=== PATIENT | male | born 1950 | race African-American/Black ===

== ENCOUNTER 2016-08-30 08:03 | Inpatient (IN) | payer OTHER ==
[~2016-08-30] VITALS: Ht 165.1 cm; Wt 57.2 kg
--- NOTE | ~2016-08-30 | HC ---
[facility] [place] [address] CONSULTATION Name: RACHELL MONTGOMERY Room #: 215-P [facility] IN M.R.#: [id number] Admission: 08/30/16 Attend Phys: Joel Raymond MD Discharge: Date of : 48 Report #: [id number] THIS REPORT FOR: //name// CC: Joel Hill DATE OF SERVICE: 08/30/2016 DATE OF SERVICE: 08/30/2016. REASON FOR CONSULTATION: Acute respiratory failure. IMPRESSION: 1. Acute respiratory failure. 2. Bilateral infiltrates. 3. Peripheral vascular disease. 4. Question history of asthma. 5. Elevated D-dimer. 6. Elevated troponin. 7. Hypokalemia. 8. Normocytic anemia, MCV of 81.8. 9. Peripheral edema. PLAN: We will do a vasculitic workup, treat as pneumonia, also treat as a volume overload, question pulmonary hypertension. Echo is being checked. We will place on antibiotics to urine Legionella and Strep. DVT prophylaxis. HISTORY OF PRESENT ILLNESS: A 65-year-old male who relates he had vascular surgery about 3 months ago with bypass, comes in. For the last 3 days, he has been having progressive shortness of breath. No definite chest pain or palpitation. No fever, chills or night sweats. Mainly stays at home. No definite exposure. No history of DVT or PE. 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 PAST MEDICAL HISTORY: 1. Hypertension. 2. GERD. 3. History of polio. 4. Vascular disease. 5. Question asthma. FAMILY HISTORY: Negative for PE or lung disease. SOCIAL HISTORY: He has not drank or smoked for 20 years. He is retired. ALLERGIES: None known. [facility] [address] [place] [address] CONSULTATION Name: RACHELL MONTGOMERY Room #: 215-P [facility] IN .R.#: [id number] Admission: 08/30/16 Attend Phys: Joel Raymond MD Discharge: Date of : 48 Report #: [id number] SURGERIES: As above. Include bones removed from rib and placed in left leg, right knee replacement, fem bypass, prostatectomy and per chart, history of bowel reconstruction surgery. HOME MEDICATIONS: Include omeprazole, Naprosyn, lisinopril, atenolol, albuterol, alprazolam, Combivent, clonidine. REVIEW OF SYSTEMS: CONSTITUTIONAL: No fever, chills. EYES: No change in vision. RESPIRATORY: Positive shortness breath. HEMATOLOGIC: No hemoptysis, hematemesis or hematuria. ABDOMEN: No abdominal pain. EXTREMITIES: Positive leg swelling. PHYSICAL EXAMINATION: VITAL SIGNS: Temperature 98, pulse 74, respiratory rate is 18, and BP 184/76. EXTREMITIES: Right leg edema. NEUROLOGIC: Alert and oriented. LABORATORY AND DIAGNOSTIC DATA: Chest x-ray showed perihilar and basilar interstitial infiltrates, significantly increased from 2015 chest. D-dimer 2.83, BUN 14, creatinine 0.6. White count 5.8, hemoglobin 10.6, platelets 183. CT PE protocol showing no emboli atelectasis and infiltrates bilaterally and small effusions. Venous Doppler is negative. We will follow closely with you. By: 1634 2257 Ward Cates MD /nt
--- NOTE | ~2016-08-30 | HC ---
[facility] [place] [address] CONSULTATION Name: RACHELL MONTGOMERY Room #: 215-P [facility] IN .R.#: [id number] Admission: 08/30/16 Attend Phys: Joel Raymond MD Discharge: Date of : 48 Report #: [id number] THIS REPORT FOR: //name// CC: Joel Hill REASON FOR CONSULTATION: Shortness of breath. HISTORY OF PRESENT ILLNESS: The patient is a 65-year-old gentleman with history of hypertension and peripheral vascular disease. He presents with a several day history of increasing shortness of breath and lower extremity edema. He denies a prior cardiac history. He was seen in the emergency department where he was severely hypoxemic. He was placed on intravenous furosemide as well as steroids and inhalers and had substantial improvement in his symptoms. He does report fairly recent peripheral vascular surgery at [facility] at which time he underwent a stress study. He was told that this stress study was okay. He did not see a sterilisation technician at that time. He denies palpitations, near syncope or syncope. Blood pressure readings have been "all over the map", although frequently high with occasional low readings. HOME MEDICATIONS: Include omeprazole 20 mg daily, lisinopril 40 mg daily, atenolol 100 mg daily, albuterol, Levitra, alprazolam, Atrovent, Lasix 20 mg daily, clonidine 0.2 mg twice daily, allopurinol 300 mg daily and Neurontin. ALLERGIES: No known drug allergies. PAST MEDICAL HISTORY: Past history and medical records are notable for asthma, gout, peripheral vascular disease with peripheral revascularization, total knee replacement, prostatectomy. SOCIAL HISTORY: He is a nonsmoker, nondrinker. 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 FAMILY HISTORY: Unremarkable for premature coronary artery disease. REVIEW OF SYSTEMS: All systems negative except as that noted above. PHYSICAL EXAMINATION: GENERAL: A pleasant gentleman in no distress. VITAL SIGNS: Blood pressure is 160/70, heart rate of 67 and regular. He is afebrile, 5 feet 5 inches tall, 148 pounds. HEENT: There are neither xanthelasma, subcutaneous xanthomata, oral mucosal or digital cyanosis or kyphoscoliosis present. CHEST: Reveals a few bibasilar crackles. CARDIAC: Regular rate and rhythm with normal S1, S2. An S3 gallop is present. Jugular venous pressure is elevated. ABDOMEN: Soft and nontender. EXTREMITIES: Without cyanosis or clubbing, peripheral edema is noted. [address] [address] CONSULTATION Name: RACHELL MONTGOMERY Anton Room #: 215-P ADM IN M.R.#: [id number] Admission: 08/30/16 Attend Phys: Joel Raymond MD Discharge: Date of : 48 Report #: [id number] pulses are 2+. NEUROLOGIC: He is alert with a nonfocal exam. LABORATORY DATA: Sodium is 141, potassium 3.5, creatinine 0.7. ProBNP of 1123. Troponin is negative. White count 5.0, hemoglobin 10, hematocrit 32, platelet count 197. RADIOLOGICAL DATA: Chest x-ray demonstrates pulmonary edema. CAT scan demonstrates no evidence of pulmonary emboli, coronary calcifications are noted. EKG, sinus rhythm, normal tracing. IMPRESSION: 1. Congestive heart failure, probable hypertensive cardiomyopathy; suspect acute on chronic systolic heart failure. 2. Peripheral vascular disease. 3. Chronic obstructive pulmonary disease. 4. Hypertension. 5. History of asthma. RECOMMENDATIONS: 1. Echocardiogram with Doppler. 2. Addition of CATRACHITA inhibitor, carvedilol. 3. Continued intravenous diuretic therapy. 4. Obtain records regarding prior stress testing, which was done fairly recently and any cardiovascular evaluation from [facility], this has been requested. Further thoughts will be forthcoming based on this evaluation. Thank you for asking me to participate in the patient's care. <ELECTRONICALLY SIGNED> By: Mckay Hannon MD, FACC 09/01/16 1052 1228 0322 Mckay Hannon MD, FACC /nt
--- NOTE | ~2016-08-30 | 2DMMODE ---
[facility] [address] [place] [address] 2 D/M-MODE ECHOCARDIOGRAM Name: RACHELL MONTGOMERY Room #: 215-P [facility] IN ..#: [id number] Admission: 08/30/16 Attend Phys: Joel Raymond, Discharge: Date of : 48 Date of Service: 08/30/16 1633 Report #: [id number] THIS REPORT FOR: //name// APPROVED REPORT Study performed: 08/30/2016 15:27:46 EXAM: Comprehensive 2D, Doppler, and color-flow Echocardiogram Patient Location: Bedside Room #: [facility] Status: routine Other Information Study Quality: Good Indications Dyspnea Hypertension/HDD 2D Dimensions LVEF(%): 46.55 (>50%) IVSd: 9.70 (7-11mm) LVOT Diam: 20.04 (18-24mm) LVDd: 53.27 mm PWd: 9.64 (7-11mm) Ascending Ao: 28.17 (22-36mm) LVDs: 40.76 (25-40mm) Aortic Root: 26.31 mm IVC: 21.00 mm Vargas's LVEF: 46.55 % Volumes Left Atrial Volume (Systole) Single Plane 4CH: 69.47 mL Single Plane 2CH: 59.01 mL LA ESV Index: 40.00 mL/m2 Aortic Valve AoV Peak Aryan.: 1.94 m/s AO Peak Gr.: 15.08 mmHg LVOT Max P.96 mmHg LVOT Max V: 0.99 m/s CONNER Vmax: 1.61 cm2 Mitral Valve E/A Ratio: 1.0 MV Decel. Time: 163.04 ms MV E Max Aryan.: 1.27 m/s MV A Aryan.: 1.24 m/s MV PHT: 47.28 ms [facility] [place] [address] 2 D/M-MODE ECHOCARDIOGRAM Name: RACHELL MONTGOMERY Room #: 215-P [facility] IN M.R.#: [id number] Admission: 08/30/16 Attend Phys: Joel Raymond, Discharge: Date of : 48 Date of Service: 08/30/16 1633 Report #: [id number] IVRT: 92.27 ms Pulmonary Valve PV Peak Aryan.: 0.91 m/s PV Peak Gr.: 3.31 mmHg UT End Vmax: 1.24 m/s Pulmonary Vein P Vein S: 0.48 m/s P Vein A: 0.30 m/s P Vein D: 0.45 m/s P Vein A Dur.: 92.3 msec P Vein S/D Ratio: 1.07 Tricuspid Valve TR Peak Aryan.: 2.89 m/s RAP Estimate: 10.00 mmHg TR Peak Gr.: 33.30 mmHg PA Pressure: 43.00 mmHg Left Ventricle The left ventricle is normal size. There is normal LV segmental wall motion. There is normal left ventricular wall thickness. The left ventricular systolic function is normal. LVEF is 50-55%. The left ventricular diastolic function is normal. Right Ventricle The right ventricle is normal size. The right ventricular systolic function is normal. Atria Left atrium is dilated. Right atrium is dilated. Aortic Valve Aortic valve is calcified. Trace aortic regurgitation. There is no aortic valvular stenosis. Mitral Valve The mitral valve is normal in structure. Mild to moderate mitral regurgitation. No evidence of mitral valve stenosis. Tricuspid Valve The tricuspid valve is normal in structure. There is mild tricuspid regurgitation. The right atrial pressure is estimated at 10 mmHg. There is moderate pulmonary hypertension. Pulmonic Valve The pulmonary valve is normal in structure. Mild pulmonic regurgitation. [address] [place] [address] 2 D/M-MODE ECHOCARDIOGRAM Name: VALENTINARACHELL Room #: 215-P [facility] IN .R.#: [id number] Admission: 08/30/16 Attend Phys: Joel Raymond, Discharge: Date of : 48 Date of Service: 08/30/16 1633 Report #: [id number] Great Vessels The aortic root is normal in size. IVC is dilated and collapses >50% with inspiration. Pericardium There is no pericardial effusion. <Conclusion> The left ventricular systolic function is normal. There is normal LV segmental wall motion. LVEF is 50-55%. Aortic valve is calcified. There is no aortic valvular stenosis, trace insufficiency The mitral valve is normal in structure. Mild to moderate mitral regurgitation. There is no pericardial effusion. <ELECTRONICALLY SIGNED> By: Mckay Hannon MD, FACC 08/30/16 1633 1633 1633 Mckay Hannon MD, FACC /INF
--- NOTE | ~2016-08-30 | EKG ---
[facility] [address] [employer] [address] ELECTROCARDIOGRAM REPORT Name: RACHELL MONTGOMERY Room #: 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 : 1950 Requested By: Sulema Callaway Order Number: [id number] MD: Mckay Hannon Measurements Intervals [place] Rate: 66 P: 65 [place]: 192 QRS: 25 QRSD: 111 T: 7 QT: 437 QTc: 458 Interpretive Statements Sinus rhythm No significant abnormality Borderline T abnormalities, inferior leads Compared to ECG 06/14/2014 21:10:26 no significant change was found Electronically Signed On 08-30-2016 8:20:49 CDT by Mckay Hannon [email or web address] <ELECTRONICALLY SIGNED> By: Mckay Hannon MD, [facility] 08/30/16819 2 2 Mckay Hannon MD, FACC /EPI
[~2016-08-30 08:03] MED LIST: ADULT LOW DOSE81 MG PO; ALBUTEROL2.5 MG/0.5 INH; ALLOPURINOL 30300 M1 PO; AMLODIPINE BESY10 MG PO; ATENOLOL 100MG100 M2; BACTRIM PO; CATAPRES0.2 MG PO; CLONIDINE HCL0.2 M2 PO; COMBIVENT INH; DESYREL100 MG PO; FLONASE 0.05%50 MCG NASAL; FUROSEMIDE 40 M40 M1 PO; GABAPENTIN100 MG PO; INDAPAMIDE2.5 MG PO; K-DUR10 ME1 PO; LASIX 20 MG TAB20 MG PO; LEVITRA20 MG PO; LIDODERM 5%1 PATC1; LISINOPRIL30 MG PO; NAPROSYN500 MG PO; NORCO 5-325 TA1 EACH PO; OMEPRAZOLE20 M2 PO; OXYCODONE HCL15 MG PO; POTASSIUM20 PO; PROMETHAZI6.25 MG/2 GT; ROBAXIN 750 MG750 M1 PO; TAMSULOSIN HCL0.4 MG PO; TOPROL XL25 MG PO; TRAZODONE HCL100 MG PO; XANAX 0.5 MG0.5 MG PO; XOPENEX HF1 UDINHALE IH; XOPENEX HF1 UDINHALE INH
[2016-08-30 08:04] VITALS: BP 184/76
[2016-08-30 08:34] LABS: HEMATOCRIT 32.7 % (42.0-52.0); HEMOGLOBIN 10.6 gm/dL (14.0-18.0); MCH 26.5 pg (26.0-34.0); MCHC 32.4 g/dL (28.0-37.0); MCV 81.8 fL (80.0-100.0); PLATELET COUNT 183 thou/uL (150-400); WBC 5.8 thou/uL (4.0-11.0)
[2016-08-30 08:40] LABS: MANUAL DIFF YES
[2016-08-30 08:45] LABS: CALCIUM 8.2 mg/dL (8.5-10.1); CREATININE 0.6 mg/dL (0.7-1.3); POTASSIUM 3.1 mmol/L (3.5-5.1)
[2016-08-30 08:57] LABS: TROPONIN-I 0.09 ng/mL (<0.04-0.07)
[2016-08-30 09:11] LABS: ABSOLUTE NEUTROPHILS 4.7 thou/uL (1.4-8.2); PLATELET ESTIMATE NORMAL; TOTAL CELL COUNT 100
[2016-08-30 09:12] LABS: ANISOCYTOSIS 2+
[2016-08-30 09:13] LABS: HYPOCHROMASIA 1+
[2016-08-30 09:14] LABS: POIKILOCYTOSIS SLIGHT
[2016-08-30 10:01] VITALS: BP 165/59
[2016-08-30 10:10] VITALS: BP 184/76
[2016-08-30 16:30] VITALS: BP 143/58
[2016-08-30 19:25] VITALS: BP 151/73
[2016-08-30 21:27] LABS: ALBUMIN 3.6 g/dL (3.4-5.0); DIRECT BILIRUBIN 0.1 mg/dL (<0.1-0.3); TOTAL BILIRUBIN 0.5 mg/dL (<0.1-1.0); TOTAL PROTEIN 6.6 g/dL (6.4-8.2)
[2016-08-30 21:31] LABS: INR 1.3; PROTIME 13.1 Seconds (9.3-11.4)
[2016-08-30 23:54] VITALS: BP 152/80
[2016-08-31 00:01] VITALS: BP 152/80
[2016-08-31 03:24] LABS: HEMATOCRIT 32.6 % (42.0-52.0); HEMOGLOBIN 10.6 gm/dL (14.0-18.0); MCH 26.2 pg (26.0-34.0); MCHC 32.5 g/dL (28.0-37.0); MCV 80.7 fL (80.0-100.0); RBC 4.05 mil/uL (4.50-6.00); RDW 20.6 % (10.5-14.5)
[2016-08-31 03:40] LABS: ALBUMIN 3.5 g/dL (3.4-5.0); CALCIUM 7.9 mg/dL (8.5-10.1); CREATININE 0.7 mg/dL (0.7-1.3); POTASSIUM 3.5 mmol/L (3.5-5.1); TOTAL BILIRUBIN 0.5 mg/dL (<0.1-1.0); TOTAL PROTEIN 6.6 g/dL (6.4-8.2); TROPONIN-I 0.05 ng/mL (<0.04-0.07)
[2016-08-31 04:03] VITALS: BP 158/67
[2016-08-31 11:17] VITALS: BP 160/75
[2016-08-31 15:54] VITALS: BP 189/79
[2016-08-31] MEDS ORDERED: ATORVASTATIN CA40 MG PO (18:14)
[2016-08-31] MEDS ORDERED: COREG3.125 MG PO (18:15)
[2016-08-31] MEDS ORDERED: ELIQUIS2.5 MG PO (18:15)
[2016-08-31] MEDS ORDERED: HYDRALAZINE 2525 MG PO (18:18)
[2016-08-31] MEDS ORDERED: FENTANYL PATCH75 MCG TRANSDERM (18:19)
[2016-08-31 19:28] VITALS: BP 161/78
[2016-09-01 03:03] LABS: HEMATOCRIT 31.6 % (42.0-52.0); HEMOGLOBIN 10.2 gm/dL (14.0-18.0); MCH 26.2 pg (26.0-34.0); MCHC 32.3 g/dL (28.0-37.0); RBC 3.9 mil/uL (4.50-6.00); RDW 20.9 % (10.5-14.5)
[2016-09-01 03:17] LABS: CREATININE 0.5 mg/dL (0.7-1.3); POTASSIUM 3.6 mmol/L (3.5-5.1)
[2016-09-01 04:12] VITALS: BP 165/68
[2016-09-01 09:10] VITALS: BP 172/70
[2016-09-01 12:00] VITALS: BP 172/73
[2016-09-01 16:50] VITALS: BP 152/80
[2016-09-01 20:32] VITALS: BP 159/75
[2016-09-02 03:50] VITALS: BP 166/84
[2016-09-02 10:05] VITALS: BP 136/65
[2016-09-02 12:00] VITALS: BP 151/64
[2016-09-02] MEDS ORDERED: ALBUTEROL2.5 MG/0.5 INH (12:00)
[2016-09-02] MEDS ORDERED: CARVEDILOL25 MG PO (12:01)
[2016-09-02] MEDS ORDERED: ASPIR 8181 MG PO (12:02)
[2016-09-02] MEDS ORDERED: ALDACTONE25 MG PO (12:02)
[2016-09-02] MEDS ORDERED: LASIX 40 MG TAB40 M1 PO (12:04)
[2016-09-02] MEDS ORDERED: SPIRIVA INH (12:13)
[2016-09-02] MEDS ORDERED: PREDNISONE 10 M10 MG PO (12:18)
[2016-09-02] MEDS ORDERED: CEFPODOXIME PR200 M1 PO (12:36)
[2016-09-02 12:49] VITALS: BP 151/64
[2016-09-02 15:41] VITALS: BP 151/64
[2016-09-02 17:10] LABS: c-ANCA <1:20 titer (Neg:<1:20); p-ANCA <1:20 titer (Neg:<1:20)
[2016-09-02 18:06] LABS: BLASTOMYCES-IMMUNODIFF Negative (Neg:<1:1); HISTOPLASMA-IMMUNODIFF Negative (Neg:<1:1)
[2016-09-03 16:09] LABS: ASPERGILLUS FLAVUS-ID Negative (Neg:<1:1); ASPERGILLUS FUMIGATUS-ID Negative (Neg:<1:1); ASPERGILLUS NIGER-ID Negative (Neg:<1:1)
== END 2016-09-02 15:42 | disposition home or self-care (01) | DRG 291 ==
LOC: ER 08:03 → EROBS 09:24 → 2N 09:24
PROVIDERS: Emergency Medicine; Family Medicine; Internal Medicine; Internal Medicine Pulmonary Disease
DX: I11.0 Hypertensive heart disease with heart failure (principal); J96.01 Acute respiratory failure with hypoxia; J18.9 Pneumonia, unspecified organism; J44.0 Chronic obstructive pulmonary disease with (acute) lower respiratory infection; I73.9 Peripheral vascular disease, unspecified; K21.9 Gastro-esophageal reflux disease without esophagitis; Z96.651 Presence of right artificial knee joint; M10.9 Gout, unspecified; J84.10 Pulmonary fibrosis, unspecified; E87.6 Hypokalemia; I50.43 Acute on chronic combined systolic (congestive) and diastolic (congestive) heart failure; D64.9 Anemia, unspecified; I99.9 Unspecified disorder of circulatory system; I27.2 Other secondary pulmonary hypertension; M19.90 Unspecified osteoarthritis, unspecified site; Z98.62 Peripheral vascular angioplasty status; Z79.899 Other long term (current) drug therapy; Z87.891 Personal history of nicotine dependence; Z86.12 Personal history of poliomyelitis; Z90.49 Acquired absence of other specified parts of digestive tract; Z90.79 Acquired absence of other genital organ(s)
CPT/HCPCS: 10194

== ENCOUNTER 2016-10-12 13:23 | Emergency (ER) | payer OTHER ==
[~2016-10-12] VITALS: Ht 165.1 cm; Wt 68.0 kg
[~2016-10-12 13:23] MED LIST changes: +ALDACTONE25 MG PO; +ASPIR 8181 MG PO; +ATORVASTATIN CA40 MG PO; +CARVEDILOL25 MG PO; +CEFPODOXIME PR200 M1 PO; +COREG3.125 MG PO; +ELIQUIS2.5 MG PO; +FENTANYL PATCH75 MCG TRANSDERM; +HYDRALAZINE 2525 MG PO; +LASIX 40 MG TAB40 M1 PO; +PREDNISONE 10 M10 MG PO; +SPIRIVA INH
[2016-10-12 14:36] LABS: HEMATOCRIT 36.7 % (42.0-52.0); HEMOGLOBIN 12.2 gm/dL (14.0-18.0); MCH 27.4 pg (26.0-34.0); MCHC 33.1 g/dL (28.0-37.0); MCV 82.6 fL (80.0-100.0); PLATELET COUNT 152 thou/uL (150-400); RBC 4.45 mil/uL (4.50-6.00); RDW 17.1 % (10.5-14.5); WBC 8.2 thou/uL (4.0-11.0)
[2016-10-12 14:37] LABS: MANUAL DIFF YES
[2016-10-12 14:52] LABS: CALCIUM 8.6 mg/dL (8.5-10.1); CREATININE 0.6 mg/dL (0.7-1.3)
[2016-10-12 14:55] LABS: POTASSIUM 2.9 mmol/L (3.5-5.1)
[2016-10-12 14:56] LABS: ABSOLUTE NEUTROPHILS 6.3 thou/uL (1.4-8.2); ANISOCYTOSIS 1+; TOTAL CELL COUNT 100
[2016-10-12] MEDS ORDERED: PENICILLIN VK500 M1 PO (15:53)
[2016-10-12 16:58] VITALS: BP 169/68
== END 2016-10-12 17:00 | disposition home or self-care (01) ==
LOC: ER 13:23
PROVIDERS: Physician Assistant
DX: K04.7 Periapical abscess without sinus (principal); E87.6 Hypokalemia; I10 Essential (primary) hypertension; I73.9 Peripheral vascular disease, unspecified; M19.90 Unspecified osteoarthritis, unspecified site; J45.909 Unspecified asthma, uncomplicated; K21.9 Gastro-esophageal reflux disease without esophagitis; M10.9 Gout, unspecified; Z90.49 Acquired absence of other specified parts of digestive tract; Z96.651 Presence of right artificial knee joint

== ENCOUNTER 2016-12-17 10:44 | Emergency (ER) | payer OTHER ==
[~2016-12-17] VITALS: Ht 289.6 cm; Wt 61.2 kg
[~2016-12-17 10:44] MED LIST changes: +PENICILLIN VK500 M1 PO
[2016-12-17 11:37] LABS: HEMATOCRIT 37.8 % (42.0-52.0); HEMOGLOBIN 12.5 gm/dL (14.0-18.0); MCH 26.2 pg (26.0-34.0); MCHC 33.2 g/dL (28.0-37.0); MCV 78.9 fL (80.0-100.0); RBC 4.79 mil/uL (4.50-6.00); RDW 16.9 % (10.5-14.5); WBC 5.2 thou/uL (4.0-11.0)
[2016-12-17 11:43] LABS: URINE BILIRUBIN NEGATIVE (Negative); URINE BLOOD 1+ (Negative); URINE COLOR YELLOW; URINE GLUCOSE-RANDOM* NEGATIVE (Negative); URINE KETONES NEGATIVE (Negative); URINE LEUKOCYTES-REFLEX NEGATIVE (Negative); URINE PROTEIN (DIPSTICK) NEGATIVE (Negative); URINE SPECIFIC GRAVITY <= 1.005 (1.003-1.035); URINE UROBILINOGEN 0.2 E.U./dl (0.2-1.0)
[2016-12-17 11:43] LABS: CALCIUM 8.4 mg/dL (8.5-10.1); CREATININE 0.6 mg/dL (0.7-1.3); POTASSIUM 3.2 mmol/L (3.5-5.1)
[2016-12-17 12:00] LABS: CASTS None Seen /LPF (None Seen); CRYSTALS None Seen /LPF (None Seen); SQUAMOUS None Seen /LPF (0-3); URINE RBC 0-2 Rare /HPF (0-2); URINE WBC-REFLEX None Seen /HPF (0-5)
[2016-12-17 15:11] VITALS: BP 171/78
== END 2016-12-17 15:00 | disposition home or self-care (01) ==
LOC: ER 10:44
PROVIDERS: Emergency Medicine
DX: R10.9 Unspecified abdominal pain (principal); I10 Essential (primary) hypertension; M19.90 Unspecified osteoarthritis, unspecified site; J45.909 Unspecified asthma, uncomplicated; K21.9 Gastro-esophageal reflux disease without esophagitis; M10.9 Gout, unspecified; Z90.49 Acquired absence of other specified parts of digestive tract; Z96.651 Presence of right artificial knee joint

== ENCOUNTER 2016-12-18 10:17 | Inpatient (IN) | payer OTHER ==
[~2016-12-18] VITALS: Ht 167.6 cm; Wt 65.4 kg
--- NOTE | ~2016-12-18 | HC ---
[facility] [place] [address] CONSULTATION Name: RACHELL MONTGOMERY Room #: 431-P [facility] IN .R.#: [id number] Admission: 12/18/16 Attend Phys: Keshav Salcido MD Discharge: Date of : 48 Report #: [id number] THIS REPORT FOR: //name// CC: Gamaliel Salcido DATE OF SERVICE: 12/18/2016 HISTORY OF PRESENT ILLNESS: The patient is a 66-year-old -Algerian male with a prior history of polio, premorbidly wheelchair bound, was apparently independent with transfers. He has been utilizing a powered wheelchair and apparently his powered wheelchair broke and now he has been utilizing a manual wheelchair. Upon discussion with case management, it sounds like the patient and have been unable to get a script for a new powered wheelchair and he thus had to utilize the manual wheelchair. The patient has had problems with back pain and weakness and difficulty with mobility utilizing the manual wheelchair. He was admitted to the hospital at this point with a hypertensive emergency, as well as some flank pain with abnormal CT of the abdomen and severe peripheral vascular disease with peripheral arterial disease. CT scan of the abdomen revealed occlusion of the aorta inferior to the level of the renal artery use. A previous abdominal aorta to bilateral common femoral bypass graft was placed; however, it was completely occluded. There also is a previous right axillary to right femoral graft present, which appears patent. We are seeing him in rehabilitation medicine consultation. PAST MEDICAL HISTORY: Again includes the polio. He ambulated with a walker and a left leg brace for many years and indicates over the last 10 years, he has been wheelchair bound. He apparently could transfer himself, although notes become more and more difficult prior to admission. He has had a prior right total knee replacements. History of peripheral vascular disease with a bypass surgery as noted above. He also has a prior history of congestive heart failure, GERD, gout, asthma, degenerative arthritis prostatectomy and bowel reconstruction surgery 02/14/2011. MEDICATIONS: Please see the full medication listing. HABITS: Tobacco abuse, quit greater than a year ago. No history of alcohol abuse. SOCIAL HISTORY: As noted above. House one level could get around in a wheelchair; as noted works during the day. REVIEW OF SYSTEMS: Note complaints of some of the low back pain, which radiates around the front and the back and was noted to red cliff around. No complaints of bowel or bladder changes. [facility] [address] [place] [address] CONSULTATION Name: RACHELL MONTGOMERY Room #: 431-P [facility] IN .R.#: [id number] Admission: 12/18/16 Attend Phys: Keshav Salcido MD Discharge: Date of : 49 Report #: [id number] PHYSICAL EXAMINATION: GENERAL: A 66-year-old slender -Algerian male in no obvious distress. NEUROLOGIC: He is alert, follows basic commands without difficulty. VITAL SIGNS: Temperature 98.6, pulse 70, respirations 17, blood pressure 192/75. HEENT: Facies are symmetric. EXTREMITIES: He has functional range of motion of both upper extremities without obvious focal weakness. DTRs are 1 in his lower extremities. Right lower extremity strength is probably a grade 3+ to 4-/5. DTRs are trace to 1. Left lower extremity revealed evidence of the old polio with a significantly atrophied for shortened lower extremity. He does have some movement of that left leg, I would grade it probably at 2+. Tone was decreased. ASSESSMENT: A 66-year-old -Algerian male with the following problem list: 1. History of polio with left lower extremity atrophy and for shortening. 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 2. Functional mobility and ADL deficits with a decline from premorbid. 3. Lower back, bilateral flank pain. 4. History of severe peripheral vascular disease with peripheral arterial disease and significantly abnormal CT of the abdomen as noted above. 5. Hypertensive emergency. 6. Prior history of congestive heart failure. PLAN: Therapies are to evaluate. He will need to be considered regarding rehab therapy options as he further medically stabilizes. Upon discussion with the director of social services there are issues regarding obtaining a powered wheelchair in this patient. This is typically a significantly involved process working with therapy and with the wheelchair vendor in order to get insurance approval. I indicated to the case aide that I certainly could assist with the patient post-discharge or have him follow up in the Senior clinic if warranted to try to assist further with this. Lot of initiative needs to come from the wheelchair vendor as far as the appropriate forms, back and can be started with therapy and then I can further assist in completing. At this point, we will be glad to follow along regarding this patient's rehab therapy needs. By: 1602 0613 Rogelio Almazan MD /[facility]
[2016-12-18 10:18] VITALS: BP 223/82
[2016-12-18 10:44] LABS: HEMATOCRIT 35.7 % (42.0-52.0); HEMOGLOBIN 11.4 gm/dL (14.0-18.0); MCH 25.2 pg (26.0-34.0); MCHC 31.9 g/dL (28.0-37.0); MCV 79.1 fL (80.0-100.0); PLATELET COUNT 179 thou/uL (150-400); RBC 4.51 mil/uL (4.50-6.00); RDW 16.9 % (10.5-14.5); WBC 5.2 thou/uL (4.0-11.0)
[2016-12-18 10:46] LABS: MANUAL DIFF YES
[2016-12-18 10:54] LABS: CALCIUM 8.5 mg/dL (8.5-10.1); CREATININE 0.5 mg/dL (0.7-1.3)
[2016-12-18 11:00] LABS: ALBUMIN 3.3 g/dL (3.4-5.0); DIRECT BILIRUBIN 0.2 mg/dL (<0.1-0.3); TOTAL BILIRUBIN 0.8 mg/dL (<0.1-1.0); TOTAL PROTEIN 6.6 g/dL (6.4-8.2)
[2016-12-18 11:02] LABS: POTASSIUM 2.9 mmol/L (3.5-5.1)
[2016-12-18 11:03] LABS: TOTAL CELL COUNT 100
[2016-12-18 11:04] LABS: ANISOCYTOSIS 1+; MICROCYTES 1+; OVALOCYTES FEW
[2016-12-18 12:35] VITALS: BP 133/57
[2016-12-18 14:28] VITALS: BP 192/75
[2016-12-18 16:20] LABS: MAGNESIUM 1.7 mg/dL (1.8-2.4)
[2016-12-18 16:22] LABS: POTASSIUM 3.9 mmol/L (3.5-5.1)
[2016-12-18 20:00] VITALS: BP 184/68
[2016-12-19 00:08] VITALS: BP 139/61
[2016-12-19 03:54] LABS: HEMATOCRIT 37.9 % (42.0-52.0); HEMOGLOBIN 12.1 gm/dL (14.0-18.0); MCH 25.1 pg (26.0-34.0); MCHC 31.8 g/dL (28.0-37.0); MCV 78.7 fL (80.0-100.0); PLATELET COUNT 209 thou/uL (150-400); RBC 4.82 mil/uL (4.50-6.00); RDW 17.2 % (10.5-14.5)
[2016-12-19 04:02] LABS: MANUAL DIFF YES
[2016-12-19 04:37] LABS: CALCIUM 8.8 mg/dL (8.5-10.1); CREATININE 0.6 mg/dL (0.7-1.3); MAGNESIUM 2.1 mg/dL (1.8-2.4); POTASSIUM 3.5 mmol/L (3.5-5.1)
[2016-12-19 05:00] VITALS: BP 155/98
[2016-12-19 05:35] LABS: URINE BILIRUBIN NEGATIVE (Negative); URINE BLOOD TRACE (Negative); URINE COLOR YELLOW; URINE GLUCOSE-RANDOM* NEGATIVE (Negative); URINE KETONES NEGATIVE (Negative); URINE NITRITE NEGATIVE (Negative); URINE PROTEIN (DIPSTICK) NEGATIVE (Negative); URINE UROBILINOGEN 0.2 E.U./dl (0.2-1.0)
[2016-12-19 07:35] LABS: ABSOLUTE NEUTROPHILS 4.3 thou/uL (1.4-8.2); PLATELET ESTIMATE NORMAL; TOTAL CELL COUNT 100
[2016-12-19 07:36] LABS: ANISOCYTOSIS 1+; HYPOCHROMASIA 1+; MICROCYTES 1+
[2016-12-19 07:37] LABS: LARGE PLATELETS FEW
[2016-12-19 07:57] VITALS: BP 185/73
[2016-12-19 15:38] VITALS: BP 141/64
[2016-12-19 20:27] VITALS: BP 134/67
[2016-12-20 12:18] VITALS: BP 159/80
[2016-12-20 15:41] VITALS: BP 142/59
[2016-12-20 20:00] VITALS: BP 173/82
[2016-12-21 00:05] VITALS: BP 135/65
[2016-12-21 03:35] VITALS: BP 138/62
[2016-12-21 07:38] VITALS: BP 142/78
[2016-12-21] MEDS ORDERED: FENTANYL PATCH75 MCG TRANSDERM (09:27)
[2016-12-21] MEDS ORDERED: OXYCODONE HCL15 MG PO (09:27)
[2016-12-21] MEDS ORDERED: HYDRALAZINE 2525 MG PO (12:09)
[2016-12-21] MEDS ORDERED: POTASSIUM20 PO (12:09)
[2016-12-21 15:54] VITALS: BP 134/62
[2016-12-21 20:20] VITALS: BP 162/73
[2016-12-22] VITALS (7 sets, daily range): BP systolic 89–167; BP diastolic 54–81
[2016-12-23 04:00] VITALS: BP 122/57
[2016-12-23 08:12] VITALS: BP 144/70
[2016-12-23 15:24] VITALS: BP 146/85
== END 2016-12-23 17:59 | DRG 305 ==
LOC: ER 10:17 → 4E 11:26 → EROBS 11:26 → 4E 12:37
PROVIDERS: Emergency Medicine; Internal Medicine
DX: I16.1 Hypertensive emergency (principal); I73.9 Peripheral vascular disease, unspecified; E87.6 Hypokalemia; J45.909 Unspecified asthma, uncomplicated; K21.9 Gastro-esophageal reflux disease without esophagitis; M10.9 Gout, unspecified; I11.0 Hypertensive heart disease with heart failure; I50.9 Heart failure, unspecified; E83.42 Hypomagnesemia; R73.03 Prediabetes; Z96.651 Presence of right artificial knee joint; M54.9 Dorsalgia, unspecified; G89.29 Other chronic pain; Z28.21 Immunization not carried out because of patient refusal; Z87.891 Personal history of nicotine dependence; Z79.82 Long term (current) use of aspirin; Z79.899 Other long term (current) drug therapy; Z86.12 Personal history of poliomyelitis; Z90.49 Acquired absence of other specified parts of digestive tract
CPT/HCPCS: 10183

== ENCOUNTER 2017-04-09 14:30 | Inpatient (IN) | payer OTHER ==
[~2017-04-09] VITALS: Ht 165.1 cm; Wt 65.3 kg
[2017-04-09] VITALS (7 sets, daily range): BP systolic 144–197; BP diastolic 53–74
--- NOTE | ~2017-04-09 | EKG ---
[address] [place] [address] ELECTROCARDIOGRAM REPORT Name: RACHELL MONTGOMERY Room #: 170-12 ADM IN M.R.#: [id number] Admission: 04/09/17 Attend Phys: Joel Raymond MD Discharge: Date of : 48 Report #: [id number] THIS REPORT FOR: //name// 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 : 1950 Requested By: Keith Butler Order Number: [id number] MD: Mckay Hannon Measurements Intervals [place] Rate: 65 P: 77 NE: 234 QRS: 0 QRSD: 108 T: -13 QT: 392 QTc: 408 Interpretive Statements Sinus rhythm Prolonged NE interval Probable left atrial enlargement Borderline T abnormalities, inferior leads Minimal ST elevation, anterior leads Compared to ECG 02/15/2017 12:38:25 No significant change was found Electronically Signed On 04-09-2017 16:09:15 [employer] by Mckay Hannon [email or web address] <ELECTRONICALLY SIGNED> By: Mckay Hannon MD, [facility] 04/09/17 1609 1446 1446 Mckay Hannon MD, [facility] /EPI
[~2017-04-09 14:30] MED LIST changes: +CLONIDINE0.1 PO; +MAG-OXIDE400 MG PO; +PERCOCET PO
[2017-04-09 14:58] LABS: HEMATOCRIT 35.9 % (42.0-52.0); HEMOGLOBIN 11.8 gm/dL (14.0-18.0); MCH 27.5 pg (26.0-34.0); MCHC 32.9 g/dL (28.0-37.0); MCV 83.6 fL (80.0-100.0); PLATELET COUNT 156 thou/uL (150-400); RDW 16.2 % (10.5-14.5); WBC 4.6 thou/uL (4.0-11.0)
[2017-04-09 15:04] LABS: ANION GAP 6 mmol/L (7-16); BUN 20 mg/dL (7-18); CALCIUM 9.2 mg/dL (8.5-10.1); CHLORIDE 108 mmol/L (98-107); CO2 26 mmol/L (21-32); CREATININE 0.7 mg/dL (0.7-1.3); GLUCOSE 111 mg/dL (74-106); POTASSIUM 3.3 mmol/L (3.5-5.1); SODIUM 140 mmol/L (136-145)
[2017-04-09 15:04] LABS: URINE BILIRUBIN NEGATIVE (Negative); URINE BLOOD NEGATIVE (Negative); URINE CLARITY CLEAR; URINE COLOR YELLOW; URINE GLUCOSE-RANDOM* NEGATIVE (Negative); URINE KETONES NEGATIVE (Negative); URINE LEUKOCYTES-REFLEX NEGATIVE (Negative); URINE NITRITE-REFLEX NEGATIVE (Negative); URINE PROTEIN (DIPSTICK) NEGATIVE (Negative); URINE UROBILINOGEN 0.2 E.U./dl (0.2-1.0)
[2017-04-09 15:13] LABS: ALBUMIN 3.8 g/dL (3.4-5.0); MAGNESIUM 1.6 mg/dL (1.8-2.4); SGOT 25 U/L (15-37); SGPT 31 U/L (30-65); TOTAL BILIRUBIN 0.3 mg/dL (<0.1-1.0); TROPONIN-I < 0.04 ng/mL (<0.06)
[2017-04-09 15:14] LABS: AMP/METHAMP Negative (Negative); BARBITURATES Negative (Negative); BENZODIAZEPINES POSITIVE (Negative); COCAINE Negative (Negative); METHADONE Negative (Negative); OPIATES POSITIVE (Negative); PCP Negative (Negative)
[2017-04-09 15:18] LABS: BE(vivo) -2.1 mmol/L (-2 to +3); HCO3 23.1 mmol/L (22.0-26.0); PCO2 41.1 mmHg (35.0-45.0); PO2 90.9 mmHg (80.0-100.0); pH 7.367 (7.360-7.450); sO2 96.7 % (92.0-98.0)
[2017-04-09 15:21] LABS: ANISOCYTOSIS 1+
[2017-04-09 15:22] LABS: POIKILOCYTOSIS SLIGHT
[2017-04-09] MEDS ORDERED: PROAIR HFA8.5 GM INH (17:14)
[2017-04-09] MEDS ORDERED: COMBIVENT RESPIM4 GM INH (17:15)
[2017-04-09] MEDS ORDERED: OXYCODONE HCL15 MG PO (17:18)
[2017-04-09] MEDS ORDERED: KLOR-CON 1010 MEQ PO (17:19)
[2017-04-09] MEDS ORDERED: XANAX1 MG PO (17:21)
[2017-04-09] MEDS ORDERED: PRILOSEC 20 MG20 MG PO (17:22)
[2017-04-09] MEDS ORDERED: ATORVASTATIN CA40 MG PO (17:23)
[2017-04-09] MEDS ORDERED: FLEXERIL PO (17:25)
[2017-04-09] MEDS ORDERED: SPIRIVA INH (17:28)
[2017-04-09] MEDS ORDERED: HYDRALAZINE 2525 MG PO (17:28)
[2017-04-10] VITALS (18 sets, daily range): BP systolic 141–206; BP diastolic 43–114
[2017-04-10 04:02] LABS: CALCIUM 8.9 mg/dL (8.5-10.1); CREATININE 0.6 mg/dL (0.7-1.3); POTASSIUM 3.5 mmol/L (3.5-5.1)
[2017-04-10 04:05] LABS: HEMATOCRIT 37.2 % (42.0-52.0); HEMOGLOBIN 12.1 gm/dL (14.0-18.0); MCH 27.1 pg (26.0-34.0); MCHC 32.5 g/dL (28.0-37.0); MCV 83.2 fL (80.0-100.0); RBC 4.47 mil/uL (4.50-6.00); RDW 15.9 % (10.5-14.5); WBC 5.9 thou/uL (4.0-11.0)
[2017-04-11 00:07] VITALS: BP 179/61
[2017-04-11 04:21] VITALS: BP 193/59
[2017-04-11 07:48] VITALS: BP 190/55
[2017-04-11 15:47] VITALS: BP 159/52
[2017-04-11 22:31] VITALS: BP 130/49
[2017-04-12 06:38] VITALS: BP 141/53
[2017-04-12 07:58] VITALS: BP 161/62
[2017-04-12 10:29] LABS: HEMATOCRIT 39.2 % (42.0-52.0); HEMOGLOBIN 12.9 gm/dL (14.0-18.0); MCH 27.2 pg (26.0-34.0); MCHC 32.9 g/dL (28.0-37.0); MCV 82.7 fL (80.0-100.0); RBC 4.74 mil/uL (4.50-6.00); RDW 16.2 % (10.5-14.5)
[2017-04-12 10:38] LABS: CALCIUM 8.6 mg/dL (8.5-10.1); CREATININE 0.8 mg/dL (0.7-1.3); MAGNESIUM 1.5 mg/dL (1.8-2.4)
[2017-04-12 16:32] VITALS: BP 132/63
[2017-04-12 19:41] VITALS: BP 178/91
[2017-04-12 19:51] VITALS: BP 113/54
[2017-04-13 04:20] VITALS: BP 107/53
[2017-04-13 06:15] LABS: HEMATOCRIT 35.6 % (42.0-52.0); HEMOGLOBIN 11.6 gm/dL (14.0-18.0); MCH 26.9 pg (26.0-34.0); MCHC 32.5 g/dL (28.0-37.0); MCV 82.7 fL (80.0-100.0); RBC 4.3 mil/uL (4.50-6.00); WBC 8.5 thou/uL (4.0-11.0)
[2017-04-13 06:21] LABS: CALCIUM 8.7 mg/dL (8.5-10.1); CREATININE 0.7 mg/dL (0.7-1.3); MAGNESIUM 1.7 mg/dL (1.8-2.4); POTASSIUM 3.5 mmol/L (3.5-5.1)
[2017-04-13 07:28] VITALS: BP 122/50
[2017-04-13 18:02] VITALS: BP 106/49
[2017-04-13 20:55] VITALS: BP 121/41
[2017-04-14 04:02] VITALS: BP 114/42
[2017-04-14 05:14] LABS: HEMOGLOBIN 11.3 gm/dL (14.0-18.0); MCH 26.8 pg (26.0-34.0); MCHC 32.4 g/dL (28.0-37.0); MCV 82.6 fL (80.0-100.0); RBC 4.23 mil/uL (4.50-6.00); RDW 16.1 % (10.5-14.5); WBC 6.5 thou/uL (4.0-11.0)
[2017-04-14 05:27] LABS: CALCIUM 8.3 mg/dL (8.5-10.1); CREATININE 0.6 mg/dL (0.7-1.3); MAGNESIUM 1.8 mg/dL (1.8-2.4); POTASSIUM 3.6 mmol/L (3.5-5.1)
[2017-04-14 07:55] VITALS: BP 139/55
[2017-04-14] MEDS ORDERED: OXYCODONE HCL10 MG PO (11:57)
[2017-04-14] MEDS ORDERED: OXYCONTIN15 MG PO (11:57)
[2017-04-14] MEDS ORDERED: CARVEDILOL25 MG PO (12:01)
[2017-04-14] MEDS ORDERED: ALDACTONE25 MG PO (12:01)
[2017-04-14 13:15] VITALS: BP 139/55
[2017-04-14 14:53] VITALS: BP 139/55
== END 2017-04-14 15:08 | disposition home health service (06) | DRG 917 ==
LOC: ER 14:30 → EROBS 15:51 → ICU 15:51 → 4S 04-10 18:18 → ENTRNSPT 04-14 14:50 → EDTRNSPTSTS 04-14 14:54 → 4S 04-14 15:08
PROVIDERS: Emergency Medicine; Internal Medicine
DX: T40.601A Poisoning by unspecified narcotics, accidental (unintentional), initial encounter (principal); G92 Toxic encephalopathy; I73.9 Peripheral vascular disease, unspecified; I11.0 Hypertensive heart disease with heart failure; I50.9 Heart failure, unspecified; Z96.651 Presence of right artificial knee joint; J45.909 Unspecified asthma, uncomplicated; M10.9 Gout, unspecified; K21.9 Gastro-esophageal reflux disease without esophagitis; E87.6 Hypokalemia; E83.42 Hypomagnesemia; G47.00 Insomnia, unspecified; G89.29 Other chronic pain; S62.102A Fracture of unspecified carpal bone, left wrist, initial encounter for closed fracture; X58.XXXA Exposure to other specified factors, initial encounter; Y93.89 Activity, other specified; Z79.899 Other long term (current) drug therapy; Z86.12 Personal history of poliomyelitis; Z90.49 Acquired absence of other specified parts of digestive tract; Y92.89 Other specified places as the place of occurrence of the external cause; Z87.891 Personal history of nicotine dependence; Y99.8 Other external cause status; Z28.21 Immunization not carried out because of patient refusal
CPT/HCPCS: 10102; 10196

== ENCOUNTER 2017-11-24 06:38 | Inpatient (IN) | payer OTHER ==
[~2017-11-24] VITALS: Ht 165.1 cm; Wt 57.8 kg
--- NOTE | ~2017-11-24 | PATH ---
[facility] [address] [place] [address] PATHOLOGY RPT PROCEDURE Name: RACHELL MONTGOMERY Room #: 422-P DIS IN M.R.#: [id number] Admission: 11/24/17 Date of : 48 Discharge: 12/04/17 Report #: [id number] Path Case #: [id number] [facility] Accession Number: [id number] . 01 Material submitted: . PART A: SACRAL TISSUE PART B: SACRAL BONE PART C: ABDOMINAL SCAR . 01 Clinical history: . Sacral wound . 02 Diagnosis: A. Sacral tissue, debridement: - Marked acute inflammation associated with fibrinoid degeneration. . B. Sacral bone, debridement: - Fragments of dense fibrous tissue and skeletal muscle with moderate acute inflammation. . C. Abdominal scar: - Fragments of skin, subcutaneous tissue and fibroadipose tissue with mild chronic inflammation. (IUV:pit 12/03/2017) QTP/12/03/2017 . 02 Electronically signed: . Bela Sena MD, Pathologist NPI- [id number] . 01 Gross description: . A. Received in formalin labeled "Rachell Montgomery, sacral tissue" is a curvilinear segment of brown skin, 3.5 cm in length, 1.7 cm wide, and 1.8 cm thick. No epithelial lesions are identified and sectioning reveals marked gross fibrosis. Welt Beater sections are submitted as A1. . B. Received in formalin labeled "Rachell Montgomery sacral lesion" is a 0.8 x 0.4 x 0.3 cm ragged brown burgos tissue fragment which is entirely submitted as B1. . C. Received in formalin labeled "Rachell Montgomery, abdominal scar" is a segment of brown skin grossly consistent with a cicatrix, 9.0 x 1.6 x 0.5 cm. Welt Beater sections are submitted as C1. . (NAVEEN; 12/01/2017) JBR/JBR . [address] [place] [address] PATHOLOGY RPT PROCEDURE Name: RACHELL MONTGOMERY Room #: 422-P DIS IN M.R.#: [id number] Admission: 11/24/17 Date of : 48 Discharge: 12/04/17 Report #: [id number] Path Case #: [id number] Pathologist provided ICD-10: L08.9, M79.89 . 02 CPT . 265534, 041029, 045267 Specimen Comment: A courtesy copy of this report has been sent to Specimen Comment: [phone], , . Specimen Comment: Report sent to , DR MOODY / DR TEIXEIRA Performed at: [address], [place] [id number] MD José Luis Rodriguez MD Phone: [phone] Performed at: [address] [id number] MD Bela Sena MD Phone: [phone]
--- NOTE | ~2017-11-24 | HC ---
[facility] [place] [address] CONSULTATION Name: RACHELL MONTGOMERY Room #: [facility]- ADM IN M.R.#: [id number] Admission: 11/24/17 Attend Phys: Alberto Tatum MD Discharge: Date of : 48 Report #: [id number] THIS REPORT FOR: //name// CC: Zbigniew Tatum DATE OF SERVICE: 11/25/2017 INFECTIOUS DISEASE CONSULTATION ATTENDING PHYSICIAN: Alberto Tatum M.D. REASON FOR CONSULTATION: Dry gluteal sacral decubitus. Possible antibiotic coverage. HISTORY OF PRESENT ILLNESS: The patient is a 67-year-old -German man [facility] where he was evaluated by Dr. Alberto Tatum. Family did relate they were not happy with the patient's care and in an attempt to make further changes in his care and possible diverting colostomy and feeding gastrostomy is entertained. He is admitted on account of those recommendations. At present, the patient is awake, comfortable and voices no complaints. He is deemed to be a rather poor historian and consequently, most, if not all, information is gathered from the review of his records. PAST MEDICAL HISTORY: Infantile poliomyelitis. The patient tells me he ambulates with some system, but in need of physical therapy. I read Dr. Rogelio Almazan's note from 2016 It indicates the patient appears to be wheelchair bound and sometimes mobilizes with a walker and needs braces on the left leg. History of peripheral vascular disease, requiring revascularization in the past. Gastroesophageal reflux. Previous prostatectomy for cancer of the prostate. Malnutrition. Development of right gluteal decubitus on account of being bedridden for several months. DRUG ALLERGIES: None listed. MEDICATIONS: The patient is on treatment with allopurinol 300 mg daily, furosemide 40 mg daily, lisinopril 40 mg daily, amlodipine 10 mg daily, atorvastatin 40 mg daily, clopidogrel 75 mg p.o. daily, pantoprazole 40 mg daily, enoxaparin 40 mg subq at bedtime, alprazolam 1 mg b.i.d., trazodone 100 mg at bedtime, gabapentin 200 mg at bedtime, cyclobenzaprine 10 mg at bedtime, Atrovent and albuterol inhalation treatments, q.i.d. polyethylene glycol, p.r.n. ondansetron, p.r.n. oxycodone, and p.r.n. fentanyl. Zosyn 3.375 grams had been started by Dr. Alberto Tatum today. PHYSICAL EXAMINATION: [address] [address] CONSULTATION Name: RACHELL MONTGOMERY Room #: [address] [place] [address] IN M.R.#: [id number] Admission: 11/24/17 Attend Phys: Alberto Tatum MD Discharge: Date of : 48 Report #: [id number] GENERAL: Chronically ill-appearing man, unable to give a clear history, presenting following: VITAL SIGNS: Temperature 97.3, pulse 53, respirations 16 and BP 116/59. Height 5 feet 5 inches, weight 127 pounds. HEENT: Head normocephalic, atraumatic. Pupils reactive. Mouth, missing teeth, periodontal disease. NECK: Supple. No thyromegaly. LUNGS: Clear to auscultation. HEART: S1, S2. No gallops or murmurs. ABDOMEN: Soft. No masses or megaly. BACK EXAMINATION: Revealed a stage 3-4 dry gluteal sacral decubitus. No foul odor. No purulence. No signs of infection. EXTREMITIES: Reveal surgical scars on the legs and atrophy muscle groups legs, particularly left leg. LABORATORY DATA: Sodium 137, potassium 3.9, BUN 9, creatinine 0.7, glucose 108 and calcium 8.1. Albumin 2 g/dL. WBC 5800, hemoglobin 8 g/dL and platelets 391,000. TSH normal. MICROBIOLOGY DATA: Blood cultures were obtained. No decubitus culture on computer. RADIOLOGY EVALUATION: None available at the present time. ASSESSMENT: 1. Stage 3-4 right gluteal decubitus. 2. Severe debility with inability to ambulate. 3. Malnutrition. 4. Anemia of chronic disease. 5. History of infantile poliomyelitis. 6. History of prostate cancer. SUGGESTIONS: We will obtain ESR and CRP, culture decubitus and for the time being, we will recommend continuation of treatment with Zosyn, as already delineated by Dr. Alberto Tatum. We will proceed with diverting colostomy and feeding gastrostomy as well as decubitus debridement if indicated. Dr. Alberto Tatum, thank you for requesting my suggestions. <ELECTRONICALLY SIGNED> By: James Huitron MD 11/26/17 0900 [id number] James Huitron MD /nt
--- NOTE | ~2017-11-24 | HC ---
[facility] [place] [address] CONSULTATION Name: RACHELL MONTGOMERY Room #: 350-P [facility] IN M.R.#: [id number] Admission: 11/24/17 Attend Phys: Alberto Tatum MD Discharge: Date of : 48 Report #: [id number] THIS REPORT FOR: //name// CC: Zbigniew Tatum DATE OF SERVICE: 11/25/2017 CHIEF COMPLAINT: Multiple pressure ulcerations. HISTORY OF PRESENT ILLNESS: This is a 67-year-old man with a history of peripheral vascular disease, status post lower extremity bypass, history of polio and prostate cancer. He has had a pressure ulcer to his parasacral region, has been bedbound for several months. He is admitted for debridement, colostomy and PEG tube placement. He denies any pain at this time, states he feels a little bit cold. ALLERGIES: None. MEDICATIONS: Include potassium, aspirin, Lasix, Mag-Ox, trazodone, Plavix, omeprazole, amlodipine, ProAir, Xanax, Lipitor, Flexeril, Spiriva, allopurinol. PAST MEDICAL HISTORY: Appendectomy, PVD, childhood polio, hypertension, arthritis, asthma, GERD, gout, previous fem-pop bypass. SOCIAL HISTORY: He is a previous smoker, having quit greater than 1 year ago. No alcohol use. FAMILY HISTORY: Noncontributory. REVIEW OF SYSTEMS: CONSTITUTIONAL: The patient denies fever, chills, or weight loss. NEUROLOGICAL: The patient does have focal weakness in his left lower extremity related to his polio. ENT: The patient denies earache, nasal drainage, sore throat. CARDIOVASCULAR: The patient denies chest pain or palpitations, diaphoresis. PULMONARY: The patient denies cough or shortness of breath. GASTROINTESTINAL: The patient denies nausea, vomiting, diarrhea or abdominal pain. ORTHOPEDIC: The patient is aware of the ulceration on his parasacral region as well as both of his heels. Other systems in a 14-point review of systems are negative. PHYSICAL EXAMINATION: [facility] [address] [place] [address] CONSULTATION Name: RACHELL MONTGOMERY Room #: 350-P [facility] IN M.R.#: [id number] Admission: 11/24/17 Attend Phys: Alberto Tatum MD Discharge: Date of : 48 Report #: [id number] VITAL SIGNS: At this time include pulse rate 53, respiratory rate 16, blood pressure 116/59, temperature 97.3. GENERAL: This is a chronically ill-appearing male patient who appears to be in minimal distress. HEENT: Examination of the head normocephalic. NECK: Supple. LUNGS: Clear. HEART: Regular rhythm. ABDOMEN: Soft, bowel sounds present. DERMATOLOGIC: Gluteal-sacral region demonstrates an unstageable pressure ulceration to the right parasacral region. It is a mix of granulation and fibrin. It does appear to tunnel perhaps close to bone, although that is undetermined at this time. Examination of both lower extremities demonstrate scarring on the left lower extremity from prior surgery. He had a small eschar on the left heel that is peeled away revealing intact skin. He has a stage 3 pressure ulcer to the right heel that is clean, superficial and granulating. He has a small stage 2 pressure ulcer to the medial first MTP on the right side, also very superficial. LABORATORY DATA: Includes sodium 137, potassium 3.9, chloride 105, CO2 of 29, BUN 9, creatinine 0.7, glucose of 108, total protein is 5.6, albumin is low at 2.0. CLINICAL IMPRESSION: 1. Unstageable pressure ulceration to the right parasacral region. 2. Stage 2 pressure ulceration to right heel. 3. Stage 2 pressure ulceration to right first metatarsophalangeal. 4. History of pressure ulceration to the left heel, which now appears to be resolved. 5. Moderate to severe protein calorie malnutrition with albumin level of 2.0. 6. Postpolio syndrome. 7. Advanced debility. RECOMMENDATIONS: At this point in time, the patient will need a low air loss mattress, q. 2 hour turning and positioning. PRAFO boots for pressure prophylaxis of both heels. He is scheduled for a surgical debridement of the parasacral ulceration. We will use the Dakin's moist gauze dressing currently. We may consider wound VAC depending on the appearance after surgery. He is also scheduled for colostomy and PEG tube placement, which I think a reasonable choice in this circumstance. We will recommend a foam based dressing to the right heel and right first MTP, PRAFO boots for pressure prophylaxis. [address] [address] CONSULTATION Name: RACHELL MONTGOMERY Room #: 350-P ADM IN M.R.#: [id number] Admission: 11/24/17 Attend Phys: Alberto Tatum MD Discharge: Date of : 48 Report #: [id number] I appreciate being asked to see him in consultation. <ELECTRONICALLY SIGNED> By: Jae Darden MD 11/26/17 0744 [id number] Jae Darden MD /nt
--- NOTE | ~2017-11-24 | O ---
[facility] [place] [address] OPERATIVE REPORT Name: RACHELL MONTGOMERY Room #: 422-P [facility] IN M.R.#: [id number] Admission: 11/24/17 Attend Phys: Alberto Tatum MD Discharge: 12/04/17 Date of : 48 Report #: [id number] THIS REPORT FOR: //name// CC: Zbigniew Tatum DATE OF SERVICE: 12/01/2017 PREOPERATIVE DIAGNOSES: 1. Sacral decubitus wound. 2. Severe protein calorie malnutrition. 3. Generalized debility. POSTOPERATIVE DIAGNOSES: 1. Sacral decubitus wound. 2. Severe protein calorie malnutrition. 3. Generalized debility. PROCEDURES PERFORMED: 1. Excisional debridement of skin, subcutaneous tissue, muscle and bone of a stage 4 sacral decubitus wound, ultimately measuring 12 x 10.5 cm in dimension (126 sq cm). Preoperative wound measurements were 11 x 10 cm in dimension with overt necrosis. 2. Thorough esophagogastroduodenoscopy (EGD) with aborted attempt at PEG tube placement. 3. Exploratory laparotomy with extensive lysis of adhesions. 4. Diverting loop transverse colostomy in the right upper quadrant. 5. Bola gastrostomy tube placement. SURGEON: Tayler Butler M.D. RETANNED LEATHER ROLLER: Michael Castro DO ANESTHESIA: General endotracheal anesthesia. ESTIMATED BLOOD LOSS: Minimal (less than 10 mL). COMPLICATIONS: None appreciated. SPECIMENS: All excised tissue to pathology including bone to microbiology. INDICATIONS: The patient is a 67-year-old male who has generalized debility and immobility, who developed a severe stage 4 sacral decubitus wound as well as severe protein-calorie malnutrition. An attempt was made at a PEG tube placement, but unfortunately we were unable to get transillumination, even [facility] [address] [place] [address] OPERATIVE REPORT Name: RACHELL MONTGOMERY Room #: 422-P [facility] IN M.R.#: [id number] Admission: 11/24/17 Attend Phys: Alberto Tatum MD Discharge: 12/04/17 Date of : 48 Report #: [id number] through his thin abdominal wall, suspected to be due to his prior longitudinal midline wound. After converting to an exploratory laparotomy, the patient had dense intra-abdominal adhesions with the colon plastered anterior to the stomach, which prevented PEG tube placement. DESCRIPTION OF PROCEDURE: After explaining the risks, benefits and alternatives of the procedure with the patient in detail and obtaining consent, the patient was brought to the operating room and placed supine on his hospital bed. After conducting a thorough timeout procedure verifying correct patient and procedure, the patient was given general endotracheal anesthesia. Once adequate anesthesia was obtained, his SCDs were hooked up to the pneumatic compression device. He was given a preoperative dose of antibiotics in line with the SCIP protocol. The patient was then positioned on the operating room table in the prone position with all pressure points appropriately padded. His sacral wound was prepped and draped in standard surgical sterile fashion. Electrocautery was used to circumferentially debride all nonviable skin, subcutaneous tissue and muscle from the periphery of the wound, carried down to the depths of the wound where the sacral bone was readily apparent. Rongeurs were used to debride the bone back to healthy vascularized bone and electrocautery was used for hemostasis. The [employer] ultrasonic debridement tool was now used to remove all remaining nonviable tissue and biofilm. Again, hemostasis was attained with electrocautery. The wound was packed with sterile saline soaked Kerlix gauze, dressed with ABDs and Medipore tape. The patient was then positioned back in the supine position on the operating room table. I performed an EGD. The [employer] upper endoscope was used to intubate the oropharynx, was traversed down the esophagus, past the pylorus to the second portion of the duodenum. Slow and careful withdrawal of the scope showed no evidence of duodenitis, gastritis, esophagitis, mass lesions or ulcerations. Retroflexion view of the scope did show small hiatal hernia. The scope was positioned in the gastric lumen where the stomach was fully insufflated, and unfortunately, we were unable to get transillumination or identify external manual ballottement anywhere throughout the abdominal domain. This was suspected to be due to the patient's longitudinal midline incision and likely adhesions. As such, the EGD scope was used to desufflate the stomach removed via the oropharynx, passed off the field, and the abdomen was sterilely prepped and draped in standard surgical sterile fashion. A #10 bladed scalpel was used to create a longitudinal midline wound from the subxiphoid location to the supraumbilical location in standard fashion. Electrocautery was used to carry this down through skin and subcutaneous tissues to ensure hemostasis. Once we arrived upon the fascia, a defect was made and a finger was placed in the abdomen, and I continued opening the fascial incision in this controlled way so as to prevent injury to underlying structures from thermal spread. Once I had opened the entirety of the midline fascial wound, the patient had dense intra-abdominal adhesions with the colon, scarred down anterior to the stomach, thereby preventing the PEG tube placement. All adhesions were taken down through an extensive lysis of adhesions, and ultimately, I was able to identify the anterior aspect of the stomach. The [address] [place] [address] OPERATIVE REPORT Name: RACHELL MONTGOMERY Room #: 422-P [facility] IN M.R.#: [id number] Admission: 11/24/17 Attend Phys: Alberto Tatum MD Discharge: 12/04/17 Date of : 48 Report #: [id number] transverse colon was plastered in the right upper quadrant as well, and as such, the decision was made to create a loop transverse colostomy in the right upper quadrant as the colon was mobile enough after the already performed lysis of adhesions that it could be brought to the anterior abdominal wall. Prior to doing this, we performed a Bola gastrostomy tube placement. A Rachel clamp was used to grasp the anterior stomach, and it was pulled inferiorly. An appropriate site was selected in the left upper quadrant, and electrocautery was used to make a skin defect. A tonsil clamp was passed through this to grasp another tonsil clamp, which was then pulled from internal to external. A 20-[place] gastrostomy tube was then grasped and pulled through the abdominal wall. The balloon was checked and had no defects. An appropriate site was selected on the anterior gastric wall in two concentric pursestring sutures of 3-0 PDS were placed. A gastrotomy was made with electrocautery, and the gastrostomy tube was placed through the gastrotomy. The 3-0 PDS sutures were then tied down tying the internal pursestring first and then the external. The balloon was inflated to 10 mL of sterile water. I then placed 3 sutures of 3-0 PDS to anchor the stomach to the abdominal wall in a triangulated fashion. Each of these were tied down sequentially bringing the stomach in close contact with the abdominal wall. The external flange of the gastrostomy tube was slid down to 2 cm at the abdominal wall, which held the balloon up against the gastric wall. I now selected the appropriate site for the diverting colostomy in the right upper quadrant. A 2.5 cm vertical incision was made with #10 bladed scalpel, and electrocautery was used to carry this down through skin and subcutaneous tissue until I arrived upon the fascia, which was scored vertically as well. Muscle was spread, and the posterior fascia was opened with electrocautery with a finger inside the abdomen to prevent injury from underlying structures. A Rachel clamp was placed through this defect and the transverse colon was pulled through. I then closed the midline fascial wound using looped #1 PDS suture in standard running fashion. Skin was closed with skin ron down the longitudinal midline wound. We now opened the transverse colon creating a colotomy on the antimesenteric aspect of the colon. This colotomy was opened further using a hemostat to prevent injury to the back wall. I then matured the colostomy using 3-[address] imbricating sutures at the 12, 3, 6, and 9 o'clock positions in standard Miriam fashion. Each resulting quadrant was then matured at the mucocutaneous juncture using short runs of 3-0 Vicryl in standard fashion. Digital finger intubation of both limbs of the loop colostomy showed them to be patent to a subfascial level. Sterile colostomy appliance was applied. A Prevena wound VAC was applied to the midline wound and the gastrostomy tube was left open to drainage. At the end of the procedure, all instrument, needle and sponge counts were correct. The patient tolerated the procedure without incident, was awakened in the operating room, [facility] [address] [place] [address] OPERATIVE REPORT Name: RACHELL MONTGOMERY Room #: 422-P [facility] IN M.R.#: [id number] Admission: 11/24/17 Attend Phys: Alberto Tatum MD Discharge: 12/04/17 Date of : 48 Report #: [id number] transitioned to the recovery room in stable condition with no apparent complications. <ELECTRONICALLY SIGNED> By: Tayler Butler MD, FACS 12/17/17 1256 [id number] Tayler Butler MD, FACS /nt
[~2017-11-24 06:38] MED LIST changes: +COMBIVENT RESPIM4 GM INH; +FLEXERIL PO; +KLOR-CON 1010 MEQ PO; +OXYCODONE HCL10 MG PO; +OXYCONTIN15 MG PO; +PRILOSEC 20 MG20 MG PO; +PROAIR HFA8.5 GM INH; +XANAX1 MG PO
[2017-11-24 14:29] VITALS: BP 125/62
[2017-11-24] MEDS ORDERED: FENTANYL PATCH75 MCG TRANSDERM (14:46)
[2017-11-24] MEDS ORDERED: PLAVIX 75 MG TA75 M1 PO (14:48)
[2017-11-24] MEDS ORDERED: OMEPRAZOLE20 M1 PO (15:17)
[2017-11-24] MEDS ORDERED: PERCOCET 7.5-31 EACH PO (15:24)
[2017-11-24 15:47] VITALS: BP 126/70
[2017-11-24 16:42] LABS: HEMATOCRIT 23.7 % (42.0-52.0); MCH 27.8 pg (26.0-34.0); MCHC 33.7 g/dL (28.0-37.0); MCV 82.5 fL (80.0-100.0); RBC 2.87 mil/uL (4.50-6.00); RDW 18.8 % (10.5-14.5); WBC 5.8 thou/uL (4.0-11.0)
[2017-11-24 16:50] LABS: CALCIUM 8.1 mg/dL (8.5-10.1); CREATININE 0.7 mg/dL (0.7-1.3); POTASSIUM 3.9 mmol/L (3.5-5.1)
[2017-11-24 16:56] LABS: TOTAL BILIRUBIN 0.2 mg/dL (<0.1-1.0); TOTAL PROTEIN 5.6 g/dL (6.4-8.2)
[2017-11-24 19:24] VITALS: BP 112/56
[2017-11-25 04:59] VITALS: BP 105/56
[2017-11-25 08:37] VITALS: BP 116/59
[2017-11-25 17:05] VITALS: BP 94/60
[2017-11-25 19:15] VITALS: BP 109/74
[2017-11-26 04:37] VITALS: BP 110/64
[2017-11-26 07:39] VITALS: BP 142/70
[2017-11-26 16:40] VITALS: BP 130/76
[2017-11-26 19:45] VITALS: BP 114/69
[2017-11-27 03:40] VITALS: BP 136/75
[2017-11-27 05:40] LABS: CALCIUM 8.6 mg/dL (8.5-10.1); CREATININE 0.8 mg/dL (0.7-1.3); POTASSIUM 4.5 mmol/L (3.5-5.1)
[2017-11-27 06:52] LABS: MCH 27.6 pg (26.0-34.0); MCHC 33.2 g/dL (28.0-37.0); MCV 83.2 fL (80.0-100.0); RBC 2.89 mil/uL (4.50-6.00); RDW 19.2 % (10.5-14.5); WBC 6.9 thou/uL (4.0-11.0)
[2017-11-27 07:40] VITALS: BP 119/69
[2017-11-27 16:00] VITALS: BP 132/68
[2017-11-27 19:28] VITALS: BP 135/64
[2017-11-28 04:04] VITALS: BP 118/64
[2017-11-28 07:33] VITALS: BP 122/63
[2017-11-28 16:55] VITALS: BP 115/59
[2017-11-28 19:35] VITALS: BP 130/70
[2017-11-29 03:15] VITALS: BP 121/64
[2017-11-29 06:28] LABS: HEMATOCRIT 21.3 % (42.0-52.0); HEMOGLOBIN 6.9 gm/dL (14.0-18.0); MCH 26.8 pg (26.0-34.0); MCHC 32.3 g/dL (28.0-37.0); MCV 82.9 fL (80.0-100.0); RBC 2.57 mil/uL (4.50-6.00); RDW 19.3 % (10.5-14.5); WBC 6.3 thou/uL (4.0-11.0)
[2017-11-29 06:38] LABS: CALCIUM 8.7 mg/dL (8.5-10.1); CREATININE 0.8 mg/dL (0.7-1.3); POTASSIUM 3.8 mmol/L (3.5-5.1)
[2017-11-29 07:47] VITALS: BP 115/67
[2017-11-29 11:23] VITALS: BP 119/66
[2017-11-29 16:32] VITALS: BP 104/70
[2017-11-29 19:41] VITALS: BP 112/58
[2017-11-30 03:17] VITALS: BP 116/67
[2017-11-30 08:36] VITALS: BP 120/61
[2017-11-30 11:40] VITALS: BP 99/54
[2017-11-30 15:38] VITALS: BP 130/72
[2017-11-30 19:19] VITALS: BP 93/58
[2017-12-01] VITALS (7 sets, daily range): BP systolic 90–139; BP diastolic 60–97
[2017-12-01 06:16] LABS: CALCIUM 8.6 mg/dL (8.5-10.1); CREATININE 1.1 mg/dL (0.7-1.3); POTASSIUM 3.8 mmol/L (3.5-5.1)
[2017-12-01 06:17] LABS: ABSOLUTE NEUTROPHILS 4.6 thou/uL (1.4-8.2); BASOPHILS 0.3 % (0.0-2.0); EOSINOPHILS 1.6 % (0.0-3.0); HEMATOCRIT 20.2 % (42.0-52.0); HEMOGLOBIN 6.6 gm/dL (14.0-18.0); LYMPHOCYTES 19.4 % (24.0-44.0); MCH 26.9 pg (26.0-34.0); MCHC 32.6 g/dL (28.0-37.0); MCV 82.4 fL (80.0-100.0); MONOCYTES 9.1 % (1.0-8.0); POLYS 69.6 % (36.0-66.0); RBC 2.46 mil/uL (4.50-6.00); RDW 18.9 % (10.5-14.5); WBC 6.6 thou/uL (4.0-11.0)
[2017-12-01 06:20] LABS: PLATELET COUNT 329 thou/uL (150-400)
[2017-12-01 08:48] LABS: ANISOCYTOSIS 1+; HYPOCHROMASIA 3+; PLATELET ESTIMATE NORMAL
[2017-12-02 03:35] VITALS: BP 135/78
[2017-12-02 06:34] LABS: HEMATOCRIT 25.9 % (42.0-52.0); MCH 28.2 pg (26.0-34.0); MCHC 33.6 g/dL (28.0-37.0); MCV 83.9 fL (80.0-100.0); RBC 3.09 mil/uL (4.50-6.00); RDW 19.9 % (10.5-14.5); WBC 9.7 thou/uL (4.0-11.0)
[2017-12-02 06:39] LABS: HEMOGLOBIN 8.7 gm/dL (14.0-18.0)
[2017-12-02 06:48] LABS: CALCIUM 9.4 mg/dL (8.5-10.1); CREATININE 1.1 mg/dL (0.7-1.3); POTASSIUM 4.6 mmol/L (3.5-5.1)
[2017-12-02 07:35] VITALS: BP 124/62
[2017-12-02 19:28] VITALS: BP 124/73
[2017-12-03 03:51] VITALS: BP 132/68
[2017-12-03 06:23] LABS: HEMATOCRIT 22.9 % (42.0-52.0); HEMOGLOBIN 7.7 gm/dL (14.0-18.0); MCH 28.3 pg (26.0-34.0); MCHC 33.6 g/dL (28.0-37.0); MCV 84.3 fL (80.0-100.0); RBC 2.72 mil/uL (4.50-6.00); RDW 20.4 % (10.5-14.5); WBC 10.4 thou/uL (4.0-11.0)
[2017-12-03 06:48] LABS: CALCIUM 8.8 mg/dL (8.5-10.1); CREATININE 1.3 mg/dL (0.7-1.3); POTASSIUM 3.8 mmol/L (3.5-5.1)
[2017-12-03 08:00] VITALS: BP 91/57
[2017-12-04 05:09] VITALS: BP 123/66
[2017-12-04 09:16] VITALS: BP 107/56
[2017-12-04 10:09] VITALS: BP 110/57
[2017-12-04 10:30] VITALS: BP 107/53
[2017-12-04 14:48] LABS: HEMATOCRIT 24.2 % (42.0-52.0); HEMOGLOBIN 7.9 gm/dL (14.0-18.0); MCHC 32.8 g/dL (28.0-37.0); MCV 85.3 fL (80.0-100.0); RBC 2.84 mil/uL (4.50-6.00); RDW 20.8 % (10.5-14.5); WBC 11.4 thou/uL (4.0-11.0)
[2017-12-04 15:02] LABS: MAGNESIUM 1.7 mg/dL (1.8-2.4); POTASSIUM 3.6 mmol/L (3.5-5.1)
[2017-12-04] MEDS ORDERED: ZOSYN 3.373.375 GM/1 IV (15:19)
[2017-12-04] MEDS ORDERED: MIRALAX17 GM PO (15:19)
== END 2017-12-04 18:01 | DRG 853 ==
LOC: HYPER 06:38 → 3W 13:09 → 4E 13:09
PROVIDERS: Emergency Medicine; Hospitalist; Internal Medicine
PROC: 0QB10ZZ Excision of Sacrum, Open Approach (ICD-10-PCS; principal; 2017-12-01)
PROC: 30233N1 Transfusion of Nonautologous Red Blood Cells into Peripheral Vein, Percutaneous Approach (ICD-10-PCS; principal; 2017-12-01)
PROC: 0D1L0Z4 Bypass Transverse Colon to Cutaneous, Open Approach (ICD-10-PCS; principal; 2017-12-01)
PROC: 0DH60UZ Insertion of Feeding Device into Stomach, Open Approach (ICD-10-PCS; principal; 2017-12-01)
DX: A41.9 Sepsis, unspecified organism (principal); L89.154 Pressure ulcer of sacral region, stage 4; E43 Unspecified severe protein-calorie malnutrition; G82.20 Paraplegia, unspecified; I73.9 Peripheral vascular disease, unspecified; K21.9 Gastro-esophageal reflux disease without esophagitis; D63.8 Anemia in other chronic diseases classified elsewhere; M19.90 Unspecified osteoarthritis, unspecified site; J45.909 Unspecified asthma, uncomplicated; M10.9 Gout, unspecified; L89.612 Pressure ulcer of right heel, stage 2; L89.892 Pressure ulcer of other site, stage 2; I11.0 Hypertensive heart disease with heart failure; E78.5 Hyperlipidemia, unspecified; I50.9 Heart failure, unspecified; A80.9 Acute poliomyelitis, unspecified; Z96.651 Presence of right artificial knee joint; G89.29 Other chronic pain; Z79.899 Other long term (current) drug therapy; Z99.3 Dependence on wheelchair; Z85.46 Personal history of malignant neoplasm of prostate; Z90.49 Acquired absence of other specified parts of digestive tract; Z86.12 Personal history of poliomyelitis; Z87.891 Personal history of nicotine dependence; Z79.82 Long term (current) use of aspirin; Z68.21 Body mass index [BMI] 21.0-21.9, adult
CPT/HCPCS: 10779; 10783; 10879; 50010; 50011; 50101; 50386; 50403; 50953; 51412; 51708; 51712; 56524; 56525; 56527; 56530; 57092; 57114; 57119; 57120; 62110; 62900; 65002; 65090; 70005

== ENCOUNTER 2018-01-02 17:18 | Inpatient (IN) | payer OTHER ==
[~2018-01-02] VITALS: Ht 165.1 cm; Wt 59.0 kg
--- NOTE | ~2018-01-02 | HC ---
[facility] [place] [address] CONSULTATION Name: RACHELL MONTGOMERY Room #: 419-P ADM IN M.R.#: [id number] Admission: 01/02/18 Attend Phys: Shaheen Serrano MD Discharge: Date of : 48 Report #: [id number] THIS REPORT FOR: //name// CC: Joel Caba Akkulugari DATE OF SERVICE: 01/03/2018 CHIEF COMPLAINT: Sacral pressure ulceration. HISTORY OF PRESENT ILLNESS: This is a 67-year-old male patient with whom I am familiar from recent hospitalization in November. He has a history of a stage 3 pressure ulcer to the sacral region, as well as to his right heel and right first MTP. I have been able to evaluate him briefly while he is being taken to CT scan. I have been able to evaluate his sacral ulceration, but not the lower extremity ulcers. PAST MEDICAL HISTORY: Significant for the multiple pressure ulcerations as noted. He has a history of peripheral vascular disease, status post lower extremity bypass, history of polio and prostate cancer. PAST SURGICAL HISTORY: He has had previous colostomy and PEG tube placement. ALLERGIES: None. MEDICATIONS: At this time include Tylenol, albuterol, allopurinol, alprazolam, aspirin, clopidogrel, fentanyl intravenous, fentanyl patch, Glucagon, insulin, oxycodone, Seroquel, trazodone. SOCIAL HISTORY: The patient is a previous smoker, having quit greater than a year ago. No alcohol use. FAMILY HISTORY: Noncontributory. REVIEW OF SYSTEMS: CONSTITUTIONAL: No fever, chills, weight loss. NEUROLOGICAL: The patient does have focal weakness of his left lower extremity related to his polio. ENT: The patient denies earache, nasal discharge or sore throat. CARDIOVASCULAR: The patient denies chest pain, palpitations or diaphoresis. PULMONARY: The patient denies cough or shortness of breath. GASTROINTESTINAL: The patient denies nausea, vomiting or abdominal pain. ORTHOPEDIC: The patient is aware of the ulceration in his parasacral region, as well as in his heels. Other systems in a 14-point review of systems are negative. [address] [address] CONSULTATION Name: RACHELL MONTGOMERY Room #: 419-P ADM IN M.R.#: [id number] Admission: 01/02/18 Attend Phys: Shaheen Serrano MD Discharge: Date of : 48 Report #: [id number] PHYSICAL EXAMINATION: VITAL SIGNS: At this time include pulse rate 96, respiratory rate 20, blood pressure 137/59, temperature 97.4. GENERAL: This is a chronically ill-appearing male patient in no distress. HEENT: Head normocephalic. Nose and throat are clear. NECK: Supple. LUNGS: Clear. ABDOMEN: Soft. Bowel sounds present. Sacral region demonstrates sacral ulceration is a mix of granulation fibrin. It is relatively clean, although there is more fibrin present than when previously seen. NEUROLOGIC: The patient is weak on the left side. LABORATORY DATA: At this time includes sodium 140, potassium 3.3, chloride 106, CO2 23, BUN 17, creatinine 0.8, glucose 108, CRP is 38.1. White blood cell count is 9.7 with a hemoglobin 8.5, hematocrit of 25.3. CLINICAL IMPRESSION: 1. Stage 4 sacral pressure ulceration. 2. Stage 3 pressure ulcerations to the lower extremities. 3. Sepsis. 4. Type 2 diabetes mellitus. 5. Severe protein-calorie malnutrition. RECOMMENDATIONS: At this point in time, the patient will be placed on low air loss mattress, q. 2 hour turning and positioning. Use half strength Dakin's moist gauze to the sacrum and lower extremity. He will need PRAFO boots for pressure prophylaxis. He will need aggressive nutritional support, has PEG tube in place. I appreciate being asked to see him in consultation. <ELECTRONICALLY SIGNED> By: Jae Darden MD 01/05/18 0939 [id number] Jae Darden MD /nt
--- NOTE | ~2018-01-02 | HC ---
[facility] [place] [address] CONSULTATION Name: RACHELL MONTGOMERY Room #: 419-P ADM IN M.R.#: [id number] Admission: 01/02/18 Attend Phys: Shaheen Serrano MD Discharge: Date of : 48 Report #: [id number] THIS REPORT FOR: //name// CC: Rosales Serrano HISTORY OF PRESENT ILLNESS: The patient is a 67-year-old man who was admitted to the hospital through the Emergency Room on 01/02/2018 as a transfer from his fdc facility. The patient had a history that he fell striking his head and he was brought to the ER. He was also having problems with his right shoulder. The patient has a complicated history and he is being treated for sacral decubitus and C. diff. He has had a diverting colostomy and PEG tube placement last month. He has had diarrhea, both through his ostomy and from the anus. He has an indwelling Cota catheter. He has been started on vancomycin. The patient does have chronic pain for which he is on fentanyl and oxycodone. He has a history of hypertension, arthritis, asthma, gout, total knee arthroplasty, femoral bypass surgery, prostatectomy and congestive heart failure. He has had problems with his memory and thinking processes and he reports that he has not driven for over a year. On testing, the patient was found to have a positive serology for syphilis. The IgM-IgG antibody was positive. When I asked the patient if he had ever had a history of syphilis, he replied that he did many years ago when he was living on [address] [place] [address]. I called his , Zuleyka who has known him for about 25 years and she indicated that she knew nothing about this. SOCIAL HISTORY: The patient is a past smoker. He does not drink alcohol. REVIEW OF SYSTEMS: Positive for pain in the shoulder, low back and knee. Positive for diarrhea. Positive for memory loss. He denies visual problems or headaches. He has chronic weakness of the left leg secondary to polio. PHYSICAL EXAMINATION: VITAL SIGNS: Blood pressure 171/85, temperature 37.4, pulse 82. GENERAL APPEARANCE: The patient is an elderly man, who appears chronically ill. NECK: Rigid in flexion and extension, but also rigid laterally as well. MENTAL STATUS TESTING: He is alert, but not oriented to year. He thinks he is in [facility]. He could give a relatively good medical narrative. He could not remember any of 3 objects after 3 minutes. He could not do simple calculations, but he could read the clock on the wall. On cranial nerve testing, the pupils were small, but equally round. They constricted well to light. Extraocular movements were full. Visual tony were full to confrontation. Facial sensation was normal. There was a very mild asymmetry of the face with flattening of the left nasolabial fold. The tongue protruded well, but was very red. On motor testing, he had difficulty fully abducting his right arm, but had good strength in the deltoid, biceps and [address] [address] CONSULTATION Name: RACHELL MONTGOMERY Room #: 419-P [facility] IN M.R.#: [id number] Admission: 01/02/18 Attend Phys: Shaheen Serrano MD Discharge: Date of : 48 Report #: [id number] triceps when tested separately and good strength in the hand muscles. He had good power in his left arm. In the legs, he was wearing a boot on his right foot. He had marked atrophy of the left leg. Sensation testing was intact to light touch. Coordination testing was done well with the left hand with rapid alternating movements. The right was difficult to test. Reflexes were absent throughout. Gait was not tested. IMPRESSION: The patient has memory loss of over a year, which caused him to be living in a fdc facility. He has sacral decubiti and Clostridium difficile on antibiotics. He has anemia of chronic disease and chronic pain for which he takes fentanyl and oxycodone. He is also taking quetiapine, trazodone and small amounts of alprazolam. He had a positive serology for syphilis. He himself gives a history that he was treated with penicillin many years ago. The test should be confirmed with a treponemal test. If positive, I would defer to Infectious Disease about doing a spinal tap. By: 1023 [id number] Kahlil Membreno MD /nt
--- NOTE | ~2018-01-02 | HC ---
[facility] [place] [address] CONSULTATION Name: RACHELL MONTGOMERY Room #: 419-P [facility] IN M.R.#: [id number] Admission: 01/02/18 Attend Phys: Joel Raymond MD Discharge: Date of : 48 Report #: [id number] THIS REPORT FOR: //name// CC: Joel Raymond Rosales Akkulugari DATE OF SERVICE: 01/03/2018 INFECTIOUS DISEASE CONSULTATION: REASON FOR CONSULTATION: I was asked to evaluate concerning sacral decubitus and diarrhea. HISTORY OF PRESENT ILLNESS: The patient was a 67-year-old with a stage 4 sacral decubitus, status post diverting colostomy and PEG tube placement last month. Had a fall while at the long term. He has had development of diarrhea, both through his ostomy and as well from his anus. No documented fever, chills or sweats. He had previously been on Zosyn, now off antibiotics. He has an indwelling Cota catheter. He was last seen by Dr. Huitron on 12/04/2017 with a diagnosis of diverting transverse colostomy with feeding gastrostomy and debridement of his sacral decubitus. Plan of care was not described. Review of his operative report from 12/01/2017 noted a diverting loop transverse colostomy in the right upper quadrant. A Bola gastrostomy tube was also placed. The patient was currently without complaint of abdominal pain, nausea or vomiting. Seemed reasonably comfortable. No cough or sputum production. No chest pain. Has indwelling Cota catheter. Peripheral IV in place. ALLERGIES: IODINE. MEDICATIONS: As noted on his MAR including fentanyl, aspirin, clopidogrel, allopurinol, insulin, alprazolam, Zosyn, trazodone, Seroquel, albuterol, vancomycin. PAST MEDICAL HISTORY: Appendectomy, peripheral vascular disease, polio with left lower extremity weakness, hypertension, arthritis, asthma, gastroesophageal reflux, gout, left leg reconstructive surgery, right total knee arthroplasty, femoral bypass, prostatectomy, congestive heart failure. FAMILY HISTORY: Noncontributory. SOCIAL HISTORY: Past smoker, no significant alcohol intake. REVIEW OF SYSTEMS: Negative other than what has been described above. PHYSICAL EXAMINATION: VITAL SIGNS: Afebrile and hemodynamically stable. [address] [address] CONSULTATION Name: RACHELL MONTGOMERY Room #: 419-P [facility] IN M.R.#: [id number] Admission: 01/02/18 Attend Phys: Joel Raymond MD Discharge: Date of : 48 Report #: [id number] GENERAL: The patient was alert, in no distress. Peripheral IV in place. EYES: Nonicteric, conjunctivae without inflammation. Mouth without lesion. NECK: Supple. LUNGS: Clear. HEART: Regular. ABDOMEN: Soft and nontender. Midline incision was unremarkable. Colostomy was unremarkable. PEG tube site was unremarkable with no drainage. Cota catheter in place. No scrotal rash or mass. BACK: Without evidence of injury. No CVA tenderness. EXTREMITIES: Able to move both upper and lower extremities. No increased edema. NEUROLOGIC: Cranial nerves intact. Strength in his upper extremities was normal. He had bilateral lower extremity weakness. Decubitus to his sacrum, stage 4 with palpable bone. No purulent drainage. He was incontinent of liquid stool from his anus. It is noted that he has a loop colostomy. No palpable adenopathy. Mood appeared normal. He does have underlying dementia. LABORATORY STUDIES: CT scan of the head was negative. BNP 484. Sodium 140, potassium 3.3, bicarbonate 23, creatinine 0.8, hemoglobin 8.5, WBC 9.7, platelet count 340,000. Influenza antigen was negative. Lactate 1. Urinalysis, moderate wbc's, moderate bacteria, yeast present. Indwelling Cota catheter source. Chest x-ray: No acute infiltrate. IMPRESSION: 1. Stage 4 sacral decubitus. Does have evidence of exposed bone. Received a prolonged course of IV antibiotic therapy. Now, with diarrhea, may be C. difficile colitis. The patient is not toxic with no fever or leukocytosis. Does have bacteriuria and candiduria in the setting of indwelling Cota catheter. This may be more colonization of the bladder. No evidence of pneumonia. I would recommend stopping his other systemic antibiotics and go with enteral vancomycin pending stool studies. Continue with wound care. May need to adjust his treatment plan pending further laboratory studies. <ELECTRONICALLY SIGNED> By: Keith Adams MD 01/04/18 1221 1631 25 Keith Adams MD /nt
[~2018-01-02 17:18] MED LIST changes: +MIRALAX17 GM PO; +OMEPRAZOLE20 M1 PO; +PERCOCET 7.5-31 EACH PO; +PLAVIX 75 MG TA75 M1 PO; +ZOSYN 3.373.375 GM/1 IV
[2018-01-02 17:24] VITALS: BP 144/80
[2018-01-02 19:36] LABS: URINE BILIRUBIN NEGATIVE (Negative); URINE BLOOD 1+ (Negative); URINE CLARITY CLEAR; URINE COLOR YELLOW; URINE GLUCOSE-RANDOM* NEGATIVE (Negative); URINE KETONES NEGATIVE (Negative); URINE PROTEIN (DIPSTICK) 1+ (Negative); URINE SPECIFIC GRAVITY 1.025 (1.005-1.035); URINE UROBILINOGEN 0.2 E.U./dl (0.2-1.0)
[2018-01-02 19:37] LABS: ABSOLUTE NEUTROPHILS 10.9 thou/uL (1.4-8.2); BASOPHILS 0.2 % (0.0-2.0); EOSINOPHILS 0.9 % (0.0-3.0); HEMATOCRIT 29.9 % (42.0-52.0); HEMOGLOBIN 9.9 gm/dL (14.0-18.0); LYMPHOCYTES 7.3 % (24.0-44.0); MCHC 33.2 g/dL (28.0-37.0); MCV 81.5 fL (80.0-100.0); PLATELET COUNT 459 thou/uL (150-400); POLYS 80.6 % (36.0-66.0); RBC 3.67 mil/uL (4.50-6.00); URINE LEUKOCYTES-REFLEX 3+ (Negative); URINE NITRITE-REFLEX POSITIVE (Negative); WBC 13.5 thou/uL (4.0-11.0)
[2018-01-02 19:47] LABS: CALCIUM 9.2 mg/dL (8.5-10.1); CREATININE 0.9 mg/dL (0.7-1.3)
[2018-01-02 19:49] LABS: CRYSTALS None Seen /LPF (None Seen); HYALINE CASTS 4-10 Moderate /LPF (None Seen); SQUAMOUS 4-10 Moderate /LPF (0-3); URINE RBC 3-10 Few /HPF (0-2); WBC CLUMPS Few (None Seen); YEAST-REFLEX Present (None Seen)
[2018-01-02 19:53] LABS: ALBUMIN 2.2 g/dL (3.4-5.0); TOTAL BILIRUBIN 0.3 mg/dL (<0.1-1.0); TOTAL PROTEIN 7.3 g/dL (6.4-8.2)
[2018-01-02 19:54] LABS: POTASSIUM 2.8 mmol/L (3.5-5.1)
[2018-01-02 23:49] VITALS: BP 147/60
[2018-01-03] MEDS ORDERED: SEROQUEL 25 MG25 M1 PO (02:11)
[2018-01-03] MEDS ORDERED: ALBUTEROL2.5 MG/31 INH (02:12)
[2018-01-03] MEDS ORDERED: TYLENOL325 MG PO (02:13)
[2018-01-03] MEDS ORDERED: OXYCODONE HCL15 MG PO (02:14)
[2018-01-03] MEDS ORDERED: ASPIR 8181 MG PER TUBE (02:15)
[2018-01-03 05:51] LABS: HEMATOCRIT 25.3 % (42.0-52.0); HEMOGLOBIN 8.5 gm/dL (14.0-18.0); MCH 27.2 pg (26.0-34.0); MCHC 33.5 g/dL (28.0-37.0); MCV 81.3 fL (80.0-100.0); RBC 3.11 mil/uL (4.50-6.00); RDW 17.5 % (10.5-14.5); WBC 9.7 thou/uL (4.0-11.0)
[2018-01-03 06:10] LABS: CALCIUM 8.3 mg/dL (8.5-10.1); CREATININE 0.8 mg/dL (0.7-1.3); MAGNESIUM 1.5 mg/dL (1.8-2.4); POTASSIUM 3.3 mmol/L (3.5-5.1)
[2018-01-03 09:08] VITALS: BP 155/68
[2018-01-03 17:37] VITALS: BP 157/59
[2018-01-03 19:38] VITALS: BP 171/66
[2018-01-04 01:15] VITALS: BP 158/61
[2018-01-04 04:05] VITALS: BP 158/62
[2018-01-04 05:14] LABS: HEMATOCRIT 25.7 % (42.0-52.0); HEMOGLOBIN 8.4 gm/dL (14.0-18.0); MCH 26.8 pg (26.0-34.0); MCHC 32.7 g/dL (28.0-37.0); MCV 82.1 fL (80.0-100.0); RBC 3.12 mil/uL (4.50-6.00); RDW 17.5 % (10.5-14.5); WBC 9.8 thou/uL (4.0-11.0)
[2018-01-04 05:30] LABS: CALCIUM 8.7 mg/dL (8.5-10.1); CREATININE 0.6 mg/dL (0.7-1.3); MAGNESIUM 1.5 mg/dL (1.8-2.4); PHOSPHORUS 2.8 mg/dL (2.5-4.9)
[2018-01-04 05:33] LABS: POTASSIUM 2.5 mmol/L (3.5-5.1)
[2018-01-04 06:44] LABS: FOLIC ACID 28.3 ng/mL (8.6-58.9)
[2018-01-04 12:32] LABS: CALCIUM 8.7 mg/dL (8.5-10.1); CREATININE 0.6 mg/dL (0.7-1.3)
[2018-01-04 12:36] LABS: POTASSIUM 2.9 mmol/L (3.5-5.1)
[2018-01-04 19:33] VITALS: BP 172/73
[2018-01-05 05:13] VITALS: BP 141/94; BP 164/68
[2018-01-05 06:11] LABS: HEMATOCRIT 27.5 % (42.0-52.0); HEMOGLOBIN 8.9 gm/dL (14.0-18.0); MCH 26.4 pg (26.0-34.0); MCHC 32.3 g/dL (28.0-37.0); MCV 81.7 fL (80.0-100.0); RBC 3.37 mil/uL (4.50-6.00); WBC 9.6 thou/uL (4.0-11.0)
[2018-01-05 06:21] LABS: CALCIUM 8.7 mg/dL (8.5-10.1); CREATININE 0.5 mg/dL (0.7-1.3); MAGNESIUM 1.8 mg/dL (1.8-2.4); POTASSIUM 3.5 mmol/L (3.5-5.1)
[2018-01-05 07:07] VITALS: BP 137/68
[2018-01-05 16:15] VITALS: BP 185/73
[2018-01-05 19:49] VITALS: BP 176/76
[2018-01-05 23:07] LABS: GLYCOHEMOGLOBIN (HGB A1C) 5.4 % (4.8-5.6)
[2018-01-06 04:07] VITALS: BP 142/61
[2018-01-06 06:00] LABS: HEMATOCRIT 26.8 % (42.0-52.0); HEMOGLOBIN 8.8 gm/dL (14.0-18.0); MCH 26.7 pg (26.0-34.0); MCHC 32.7 g/dL (28.0-37.0); MCV 81.8 fL (80.0-100.0); RBC 3.28 mil/uL (4.50-6.00); WBC 8.6 thou/uL (4.0-11.0)
[2018-01-06 06:15] LABS: CALCIUM 8.7 mg/dL (8.5-10.1); CREATININE 0.6 mg/dL (0.7-1.3); MAGNESIUM 1.8 mg/dL (1.8-2.4); POTASSIUM 3.8 mmol/L (3.5-5.1); TOTAL BILIRUBIN 0.2 mg/dL (<0.1-1.0); TOTAL PROTEIN 6.2 g/dL (6.4-8.2)
[2018-01-06 07:15] VITALS: BP 171/85
[2018-01-06 16:12] VITALS: BP 171/85
[2018-01-06 19:33] VITALS: BP 138/66
[2018-01-07 03:40] VITALS: BP 142/58
[2018-01-07 04:57] LABS: HEMATOCRIT 25.8 % (42.0-52.0); HEMOGLOBIN 8.2 gm/dL (14.0-18.0); MCH 26.2 pg (26.0-34.0); MCHC 31.9 g/dL (28.0-37.0); MCV 81.9 fL (80.0-100.0); RBC 3.15 mil/uL (4.50-6.00); RDW 17.6 % (10.5-14.5); WBC 8.6 thou/uL (4.0-11.0)
[2018-01-07 05:02] LABS: CALCIUM 8.2 mg/dL (8.5-10.1); CREATININE 0.6 mg/dL (0.7-1.3); POTASSIUM 3.4 mmol/L (3.5-5.1)
[2018-01-07 08:01] VITALS: BP 131/58
[2018-01-07 16:02] VITALS: BP 165/70
[2018-01-07 19:15] VITALS: BP 128/60
[2018-01-08 03:47] LABS: CALCIUM 8.4 mg/dL (8.5-10.1); CREATININE 0.6 mg/dL (0.7-1.3)
[2018-01-08 03:50] LABS: POTASSIUM 3.9 mmol/L (3.5-5.1)
[2018-01-08 03:59] LABS: HEMATOCRIT 25.4 % (42.0-52.0); HEMOGLOBIN 8.2 gm/dL (14.0-18.0); MCH 26.3 pg (26.0-34.0); MCHC 32.2 g/dL (28.0-37.0); MCV 81.6 fL (80.0-100.0); RBC 3.11 mil/uL (4.50-6.00); RDW 18.3 % (10.5-14.5); WBC 8.9 thou/uL (4.0-11.0)
[2018-01-08 04:53] VITALS: BP 113/51
[2018-01-08 09:07] LABS: APTT 27.1 Seconds (24.5-32.8); INR 1.2; PROTIME 12.1 Seconds (9.3-11.4)
[2018-01-08 11:14] LABS: CSF GLUCOSE 71 mg/dL (40-70); CSF PROTEIN 59 mg/dL (15-45)
[2018-01-08 11:19] LABS: CSF CLARITY CLEAR; CSF COLOR COLORLESS; VOLUME 13 ml
[2018-01-08 11:27] LABS: CSF RBC 6 /mm3; CSF WBC 4 /mm3 (0-10)
[2018-01-08 16:02] VITALS: BP 103/43
[2018-01-08 16:40] LABS: HIV ANTIBODY Non Reactive (Non Reactive)
[2018-01-08 20:50] VITALS: BP 154/61
[2018-01-09 04:01] VITALS: BP 131/56
[2018-01-09 06:49] LABS: HEMATOCRIT 25.9 % (42.0-52.0); HEMOGLOBIN 8.6 gm/dL (14.0-18.0); MCH 26.9 pg (26.0-34.0); MCV 81.6 fL (80.0-100.0); RBC 3.18 mil/uL (4.50-6.00); WBC 10.7 thou/uL (4.0-11.0)
[2018-01-09 07:03] LABS: CALCIUM 8.6 mg/dL (8.5-10.1); CREATININE 0.6 mg/dL (0.7-1.3)
[2018-01-09 07:04] LABS: POTASSIUM 4.2 mmol/L (3.5-5.1)
[2018-01-09 11:49] VITALS: BP 131/56
[2018-01-09 20:30] VITALS: BP 133/56
[2018-01-10 04:30] VITALS: BP 111/48
[2018-01-10 05:44] LABS: HEMATOCRIT 26.6 % (42.0-52.0); HEMOGLOBIN 8.5 gm/dL (14.0-18.0); MCH 26.1 pg (26.0-34.0); MCHC 31.9 g/dL (28.0-37.0); MCV 81.8 fL (80.0-100.0); RBC 3.25 mil/uL (4.50-6.00); WBC 9.7 thou/uL (4.0-11.0)
[2018-01-10 05:53] LABS: CALCIUM 8.1 mg/dL (8.5-10.1); CREATININE 0.6 mg/dL (0.7-1.3); POTASSIUM 3.3 mmol/L (3.5-5.1)
[2018-01-10 07:34] VITALS: BP 119/57
[2018-01-10 15:09] VITALS: BP 116/50
[2018-01-10 19:16] VITALS: BP 142/60
[2018-01-11 04:09] VITALS: BP 137/64
[2018-01-11 07:56] VITALS: BP 141/68
[2018-01-11 13:31] VITALS: BP 141/68
[2018-01-11 19:47] VITALS: BP 141/52
[2018-01-12 04:25] VITALS: BP 168/66
[2018-01-12 07:51] VITALS: BP 139/70
[2018-01-12] MEDS ORDERED: OXYCODONE HCL15 MG PO (10:19)
[2018-01-12] MEDS ORDERED: FIRVANQ50 MG/1 ML PO (10:19)
[2018-01-12] MEDS ORDERED: FENTANYL PATCH75 MCG TRANSDERM (10:20)
[2018-01-12 13:07] LABS: CSF VDRL Non Reactive (Non Rea:<1:1)
[2018-01-12 15:51] VITALS: BP 133/63
[2018-01-12 20:39] VITALS: BP 150/62
[2018-01-13 05:28] VITALS: BP 113/52
[2018-01-13 07:40] VITALS: BP 118/59
[2018-01-13 08:00] VITALS: BP 134/66
== END 2018-01-13 15:23 | DRG 698 ==
LOC: ER 17:18 → 4E 20:38 → EROBS 20:38 → 4E 23:50
PROVIDERS: Emergency Medicine; Hospitalist; Internal Medicine; Internal Medicine Infectious Disease; Nurse Practitioner Acute Care; Psychiatry & Neurology Neurology; Radiology Diagnostic Radiology; Student in an Organized Health Care Education/Training Program
DX: T83.511A Infection and inflammatory reaction due to indwelling urethral catheter, initial encounter (principal); A41.9 Sepsis, unspecified organism; L89.154 Pressure ulcer of sacral region, stage 4; L89.613 Pressure ulcer of right heel, stage 3; E43 Unspecified severe protein-calorie malnutrition; A04.72 Enterocolitis due to Clostridium difficile, not specified as recurrent; N39.0 Urinary tract infection, site not specified; I11.0 Hypertensive heart disease with heart failure; I50.9 Heart failure, unspecified; M19.90 Unspecified osteoarthritis, unspecified site; M10.9 Gout, unspecified; L89.892 Pressure ulcer of other site, stage 2; R41.3 Other amnesia; D63.8 Anemia in other chronic diseases classified elsewhere; G89.29 Other chronic pain; J45.909 Unspecified asthma, uncomplicated; E11.51 Type 2 diabetes mellitus with diabetic peripheral angiopathy without gangrene; E11.65 Type 2 diabetes mellitus with hyperglycemia; M25.512 Pain in left shoulder; Z96.651 Presence of right artificial knee joint; K21.9 Gastro-esophageal reflux disease without esophagitis; A80.9 Acute poliomyelitis, unspecified; B95.62 Methicillin resistant Staphylococcus aureus infection as the cause of diseases classified elsewhere; E83.42 Hypomagnesemia; F03.90 Unspecified dementia, unspecified severity, without behavioral disturbance, psychotic disturbance, mood disturbance, and anxiety; G35 Multiple sclerosis; M62.84 Sarcopenia; E86.0 Dehydration; A53.9 Syphilis, unspecified; Y84.6 Urinary catheterization as the cause of abnormal reaction of the patient, or of later complication, without mention of misadventure at the time of the procedure; E87.6 Hypokalemia; W18.30XA Fall on same level, unspecified, initial encounter; Y93.89 Activity, other specified; Y92.89 Other specified places as the place of occurrence of the external cause; Y99.8 Other external cause status; Z93.3 Colostomy status; Z93.1 Gastrostomy status; Z95.820 Peripheral vascular angioplasty status with implants and grafts; Z68.21 Body mass index [BMI] 21.0-21.9, adult; Z85.46 Personal history of malignant neoplasm of prostate; Z74.01 Bed confinement status; Z99.3 Dependence on wheelchair; Z87.891 Personal history of nicotine dependence; Z90.49 Acquired absence of other specified parts of digestive tract; Z90.79 Acquired absence of other genital organ(s); Z79.02 Long term (current) use of antithrombotics/antiplatelets; Z79.82 Long term (current) use of aspirin; Z79.899 Other long term (current) drug therapy; Z91.041 Radiographic dye allergy status; Z28.21 Immunization not carried out because of patient refusal
CPT/HCPCS: 10183; 10783; 57188; 57189

== ENCOUNTER 2018-01-22 20:34 | Emergency (ER) | payer OTHER ==
[~2018-01-22] VITALS: Ht 177.8 cm; Wt 52.2 kg
[~2018-01-22 20:34] MED LIST changes: +ALBUTEROL2.5 MG/31 INH; +ASPIR 8181 MG PER TUBE; +FIRVANQ50 MG/1 ML PO; +SEROQUEL 25 MG25 M1 PO; +TYLENOL325 MG PO
[2018-01-22 21:39] LABS: ABSOLUTE NEUTROPHILS 9.2 thou/uL (1.4-8.2); BASOPHILS 0.5 % (0.0-2.0); EOSINOPHILS 1.3 % (0.0-3.0); HEMATOCRIT 30.8 % (42.0-52.0); MCH 25.5 pg (26.0-34.0); MCHC 32.5 g/dL (28.0-37.0); MCV 78.6 fL (80.0-100.0); PLATELET COUNT 459 thou/uL (150-400); POLYS 81.2 % (36.0-66.0); RBC 3.92 mil/uL (4.50-6.00); WBC 11.3 thou/uL (4.0-11.0)
[2018-01-22 21:50] LABS: CALCIUM 8.9 mg/dL (8.5-10.1); CREATININE 0.6 mg/dL (0.7-1.3); POTASSIUM 3.3 mmol/L (3.5-5.1)
[2018-01-22 22:17] LABS: URINE BILIRUBIN NEGATIVE (Negative); URINE BLOOD TRACE (Negative); URINE CLARITY CLEAR; URINE COLOR YELLOW; URINE GLUCOSE-RANDOM* NEGATIVE (Negative); URINE KETONES NEGATIVE (Negative); URINE PROTEIN (DIPSTICK) NEGATIVE (Negative); URINE SPECIFIC GRAVITY 1.015 (1.005-1.035); URINE UROBILINOGEN 0.2 E.U./dl (0.2-1.0)
[2018-01-22 22:19] LABS: URINE LEUKOCYTES-REFLEX 3+ (Negative); URINE NITRITE-REFLEX POSITIVE (Negative)
[2018-01-22 22:29] LABS: URINE WBC-REFLEX >25 Many /HPF (0-5); YEAST-REFLEX Present (None Seen)
[2018-01-22 22:30] LABS: BACTERIA-REFLEX >30 Many /HPF (None Seen); CASTS None Seen /LPF (None Seen); CRYSTALS None Seen /LPF (None Seen); SQUAMOUS None Seen /LPF (0-3); URINE RBC 0-2 Rare /HPF (0-2)
[2018-01-22] MEDS ORDERED: AUGMENTIN 500-1 EACH PO (22:42)
[2018-01-22 23:30] VITALS: BP 106/49
== END 2018-01-22 23:56 | disposition home or self-care (01) ==
LOC: ER 20:34
PROVIDERS: Emergency Medicine
DX: L89.159 Pressure ulcer of sacral region, unspecified stage (principal); D64.9 Anemia, unspecified; N39.0 Urinary tract infection, site not specified; R19.7 Diarrhea, unspecified; R50.9 Fever, unspecified; I73.9 Peripheral vascular disease, unspecified; M19.90 Unspecified osteoarthritis, unspecified site; J45.909 Unspecified asthma, uncomplicated; K21.9 Gastro-esophageal reflux disease without esophagitis; M10.9 Gout, unspecified; I11.0 Hypertensive heart disease with heart failure; I50.9 Heart failure, unspecified; Z93.3 Colostomy status; Z96.651 Presence of right artificial knee joint; Z87.891 Personal history of nicotine dependence; Z90.49 Acquired absence of other specified parts of digestive tract; W06.XXXA Fall from bed, initial encounter; Y93.89 Activity, other specified; Y92.129 Unspecified place in nursing home as the place of occurrence of the external cause; Y99.8 Other external cause status

== ENCOUNTER 2018-01-29 17:31 | Inpatient (IN) | payer OTHER ==
[~2018-01-29] VITALS: Ht 165.1 cm; Wt 59.0 kg
--- NOTE | ~2018-01-29 | EKG ---
[address] [place] [address] ELECTROCARDIOGRAM REPORT Name: RACHELL MONTGOMERY Room #: 421-P ADM IN M.R.#: [id number] Admission: 01/29/18 Attend Phys: Cesario Mancilla MD Discharge: Date of : 48 Report #: [id number] THIS REPORT FOR: //name// [facility] ED Test Date: 2018-01-29 Test Time: 18:20:54 Pat Name: RACHELL MONTGOMERY Department: Room: 421 Gender: M Family Centered Specialist: SAMANTHA : 1950 Requested By: Percy Kim Order Number: [id number] MD: Mckay Hannon Measurements Intervals Saline Rate: 92 P: 86 [place]: 51 QRS: 19 QRSD: 69 T: 8 QT: 342 QTc: 424 Interpretive Statements Sinus rhythm Abnormal R-wave progression, early transition No previous ECG available for comparison Electronically Signed On 01-30-2018 8:11:48 [employer] by Mckay Hannon [email or web address] <ELECTRONICALLY SIGNED> By: Mckay Hannon MD, [facility] 01/30/18 0811 [id number] 1820 Mckay Hannon MD, FACC /EPI
--- NOTE | ~2018-01-29 | HC ---
[facility] [place] [address] CONSULTATION Name: RACHELL MONTGOMERY Room #: 421-P ADM IN M.R.#: [id number] Admission: 01/29/18 Attend Phys: Cesario Mancilla MD Discharge: Date of : 48 Report #: [id number] THIS REPORT FOR: //name// CC: Cesario Caba Akkulugari DATE OF SERVICE: 01/30/2018 REASON FOR CONSULTATION: Multiple pressure ulcerations. HISTORY OF PRESENT ILLNESS: This is a 67-year-old male patient with whom I am familiar from recent hospitalization. He has had a stage 3 pressure ulcer of the sacrum. He has undergone surgical debridement. He also underwent diverting colostomy and PEG tube placement. He left the hospital and was treated at a nursing care facility. He has developed some increasing problems with the ulcerations. His PEG tube has been pulled out and he has been readmitted. I have been asked to see him with regard to wound care. PAST MEDICAL HISTORY: Positive for history of the stage 2 pressure ulcer into the sacral region, stage 2 pressure ulceration to the right foot, type 2 diabetes mellitus and severe protein-calorie malnutrition. He is status post colostomy and PEG tube placement, although the PEG tube has now come out. SOCIAL HISTORY: The patient is a previous smoker. He is accompanied by his today. No history of alcohol use. FAMILY HISTORY: Noncontributory. MEDICATIONS: Include Tylenol, albuterol, allopurinol, alprazolam, aspirin, clopidogrel, fentanyl, Glucagon, insulin, oxycodone, Seroquel, trazodone. ALLERGIES: None. REVIEW OF SYSTEMS: CONSTITUTIONAL: The patient denies any fever or chills. He does have some generalized weakness. NEUROLOGICAL: The patient has some weakness to his left lower extremity related to previous polio syndrome. ENT: The patient denies earache, nasal drainage or sore throat. CARDIOVASCULAR: No chest pain, palpitations, diaphoresis. PULMONARY: The patient denies cough or shortness of breath. GASTROINTESTINAL: The patient denies nausea or abdominal pain. He does have colostomy. PEG tube has been pulled out. ORTHOPEDIC: The patient is aware of ulcerations in his sacral region and possibly has healed as well. [facility] [address] [place] [address] CONSULTATION Name: RACHELL MONTGOMERY Room #: 421-P ADM IN M.R.#: [id number] Admission: 01/29/18 Attend Phys: Cesario Mancilla MD Discharge: Date of : 48 Report #: [id number] Other systems in a 14-point review of systems are negative. PHYSICAL EXAMINATION: VITAL SIGNS: At this time include temperature 36.9, pulse 70, respiratory rate 16, blood pressure 144/52. GENERAL: This is a chronically, somewhat cachectic appearing male patient who appears to be in mild discomfort. HEENT: Head normocephalic. Nose and throat clear. NECK: Supple. LUNGS: Diminished. HEART: Regular rhythm. ABDOMEN: Soft. Colostomy is noted in the right mid abdomen, appears to be functioning well and appears to be pink. PEG tube site is now closed in the left abdomen. Examination of the sacral region demonstrates what appears to be stage 3 ulceration as a mix of fibrin and granulation on the surface. It does not appear to be infected. It is not as clean and granulating as well when I last saw it. BACK: Examination of the back demonstrates what appears to be possibly some abrasions to the right posterior thorax. These were all relatively superficial, some of which have dry have some dry crust present. EXTREMITIES: Lower extremities demonstrate slight bogginess to the heels. There is a stage 3 pressure ulcer to the right first MTP. NEUROLOGICAL: The patient has some left-sided weakness, including of his left lower extremity weakness. LABORATORY DATA: Includes white blood cell count 5.9 with hemoglobin of 8.2, hematocrit of 26.6. Sodium 147, potassium 3.1, chloride 111, CO2 27, BUN 7, creatinine 0.7, total protein is 6.7, albumin is low at 2.2. CLINICAL IMPRESSION: 1. Stage 3 pressure ulcer of the sacrum. 2. Stage 2 pressure of the right first metatarsophalangeal. 3. Abrasions to the right posterior chest wall. 4. Status post diverting colostomy and PEG tube placement with a PEG having been dislodged. 5. Severe protein calorie malnutrition. 6. Diabetes mellitus. RECOMMENDATIONS: At this point in time, the patient will be placed in the air loss mattress. He will need to q. 2 hour turning and repositioning. We will place a Veraflo wound VAC to the sacrum in hopes of cleaning this up and seeing better granulation tissue. We will consult surgery for PEG tube replacement. He will need PRAFO boots to both lower extremities. We will recommend skin prep and otherwise open to air entry to the right posterior chest wall. Recommend Prevalon boots to both lower extremities. The patient's family was asking about the possibility of hyperbaric oxygen therapy. I have explained that his [facility] [address] [place] [address] CONSULTATION Name: RACHELL MONTGOMERY Room #: 421-P ADM IN M.R.#: [id number] Admission: 01/29/18 Attend Phys: Cesario Mancilla MD Discharge: Date of : 48 Report #: [id number] pressure ulcers do not meet diagnostic criteria for consideration of hyperbaric oxygen therapy and therefore would not recommend proceeding with such at this time. I appreciate being asked to see the patient in consultation. <ELECTRONICALLY SIGNED> By: Jae Darden MD 02/02/18 0921 1423 2315 Jae Darden MD /rosalva
[~2018-01-29 17:31] MED LIST changes: +AUGMENTIN 500-1 EACH PO
[2018-01-29 17:32] VITALS: BP 145/65
[2018-01-29] MEDS ORDERED: SEROQUEL 25 MG25 M1 PO (17:35)
[2018-01-29] MEDS ORDERED: ALBUTEROL2.5 MG/31 INH (17:36)
[2018-01-29] MEDS ORDERED: SEROQUEL 25 MG25 M1 PER TUBE (17:36)
[2018-01-29] MEDS ORDERED: ASPIR 8181 MG PER TUBE (17:37)
[2018-01-29] MEDS ORDERED: FENTANYL PATCH75 MCG TRANSDERM (17:38)
[2018-01-29] MEDS ORDERED: FIRVANQ50 MG/1 ML PER TUBE (17:39)
[2018-01-29] MEDS ORDERED: ROXICODONE30 M1 PER TUBE (17:41)
[2018-01-29] MEDS ORDERED: JEVITY 1.5 CAL237 ML PER TUBE (17:42)
[2018-01-29] MEDS ORDERED: XANAX1 MG PO (17:43)
[2018-01-29] MEDS ORDERED: XANAX1 MG PER TUBE (17:43)
[2018-01-29 18:34] LABS: URINE CLARITY CLOUDY; URINE COLOR YELLOW
[2018-01-29 18:35] LABS: URINE BILIRUBIN NEGATIVE (Negative); URINE BLOOD 2+ (Negative); URINE GLUCOSE-RANDOM* NEGATIVE (Negative); URINE KETONES NEGATIVE (Negative); URINE LEUKOCYTES-REFLEX 3+ (Negative); URINE NITRITE-REFLEX POSITIVE (Negative); URINE PROTEIN (DIPSTICK) TRACE (Negative); URINE UROBILINOGEN 0.2 E.U./dl (0.2-1.0)
[2018-01-29 18:42] LABS: CASTS None Seen /LPF (None Seen); MUCUS >6 Heavy strn/LPF (None Seen); SQUAMOUS 0-3 Few /LPF (0-3); URINE WBC-REFLEX >25 Many /HPF (0-5)
[2018-01-29 18:43] LABS: AMORPHOUS PHOSPHATES Moderate /LPF (None Seen); BACTERIA-REFLEX >30 Many /HPF (None Seen); URINE RBC 3-10 Few /HPF (0-2); WBC CLUMPS Few (None Seen); YEAST-REFLEX Present (None Seen)
[2018-01-29 19:12] LABS: ABSOLUTE NEUTROPHILS 5.7 thou/uL (1.4-8.2); BASOPHILS 0.5 % (0.0-2.0); HEMATOCRIT 27.2 % (42.0-52.0); HEMOGLOBIN 8.4 gm/dL (14.0-18.0); LYMPHOCYTES 11.6 % (24.0-44.0); MCH 24.4 pg (26.0-34.0); MCV 78.5 fL (80.0-100.0); PLATELET COUNT 555 thou/uL (150-400); POLYS 72.9 % (36.0-66.0); RBC 3.46 mil/uL (4.50-6.00); RDW 17.9 % (10.5-14.5); WBC 7.8 thou/uL (4.0-11.0)
[2018-01-29 19:21] LABS: ANION GAP 7 mmol/L (7-16); BUN 9 mg/dL (7-18); CALCIUM 8.7 mg/dL (8.5-10.1); CHLORIDE 112 mmol/L (98-107); CO2 29 mmol/L (21-32); CREATININE 0.6 mg/dL (0.7-1.3); GLUCOSE 124 mg/dL (74-106); POTASSIUM 3.3 mmol/L (3.5-5.1); SODIUM 148 mmol/L (136-145)
[2018-01-29 19:27] LABS: ALBUMIN 2.2 g/dL (3.4-5.0); SGOT 23 U/L (15-37); SGPT 34 U/L (30-65); TOTAL BILIRUBIN 0.1 mg/dL (<0.1-1.0); TOTAL PROTEIN 6.7 g/dL (6.4-8.2); TROPONIN-I <0.06 ng/mL (<0.06)
[2018-01-29] MEDS ORDERED: CIPRO500 MG PO (20:09)
[2018-01-29 21:50] VITALS: BP 159/67
[2018-01-29 22:13] VITALS: BP 159/67
[2018-01-29 23:30] VITALS: BP 123/44
[2018-01-30 05:42] LABS: HEMATOCRIT 26.6 % (42.0-52.0); HEMOGLOBIN 8.2 gm/dL (14.0-18.0); MCH 24.6 pg (26.0-34.0); MCV 79.3 fL (80.0-100.0); RBC 3.35 mil/uL (4.50-6.00); RDW 18.5 % (10.5-14.5); WBC 5.9 thou/uL (4.0-11.0)
[2018-01-30 05:53] LABS: CALCIUM 8.9 mg/dL (8.5-10.1); CREATININE 0.7 mg/dL (0.7-1.3); POTASSIUM 3.1 mmol/L (3.5-5.1)
[2018-01-30 06:10] VITALS: BP 150/67
[2018-01-30 08:27] VITALS: BP 144/52
[2018-01-30 16:15] VITALS: BP 167/69
[2018-01-30 19:08] VITALS: BP 148/64
[2018-01-31 06:10] VITALS: BP 180/72
[2018-01-31 07:43] VITALS: BP 160/70
[2018-01-31 16:20] VITALS: BP 160/73
[2018-01-31 20:00] VITALS: BP 160/72
[2018-02-01 04:30] VITALS: BP 166/80
[2018-02-01 07:26] VITALS: BP 124/55
[2018-02-01 17:17] VITALS: BP 129/63
[2018-02-01 19:13] VITALS: BP 151/54
[2018-02-02 04:18] VITALS: BP 158/70
[2018-02-02 07:59] VITALS: BP 138/52
[2018-02-02] MEDS ORDERED: CEFUROXIME250 MG PO (13:10)
[2018-02-02] MEDS ORDERED: K-DUR 20 MEQ T20 MEQ PO (13:10)
[2018-02-02] MEDS ORDERED: MIRALAX17 GM PO (13:10)
[2018-02-02] MEDS ORDERED: ENOXAPARIN40 MG/0.1 SUBQ (13:10)
[2018-02-02 16:15] VITALS: BP 152/62
[2018-02-02 20:07] VITALS: BP 170/62
[2018-02-03 04:00] VITALS: BP 155/71
[2018-02-03 07:36] VITALS: BP 148/69
[2018-02-03 16:38] VITALS: BP 166/77
== END 2018-02-03 19:44 | DRG 871 ==
LOC: ER 17:31 → 4E 21:22 → EROBS 21:22 → 4E 21:22
PROVIDERS: Nurse Practitioner Family; Physician Assistant
DX: A41.9 Sepsis, unspecified organism (principal); L89.893 Pressure ulcer of other site, stage 3; L89.153 Pressure ulcer of sacral region, stage 3; E43 Unspecified severe protein-calorie malnutrition; N39.0 Urinary tract infection, site not specified; A04.72 Enterocolitis due to Clostridium difficile, not specified as recurrent; I69.351 Hemiplegia and hemiparesis following cerebral infarction affecting right dominant side; G93.40 Encephalopathy, unspecified; D64.9 Anemia, unspecified; E87.6 Hypokalemia; L89.892 Pressure ulcer of other site, stage 2; F03.90 Unspecified dementia, unspecified severity, without behavioral disturbance, psychotic disturbance, mood disturbance, and anxiety; S20.311A Abrasion of right front wall of thorax, initial encounter; E11.51 Type 2 diabetes mellitus with diabetic peripheral angiopathy without gangrene; X58.XXXA Exposure to other specified factors, initial encounter; B96.4 Proteus (mirabilis) (morganii) as the cause of diseases classified elsewhere; K21.9 Gastro-esophageal reflux disease without esophagitis; M10.9 Gout, unspecified; G89.4 Chronic pain syndrome; Z90.49 Acquired absence of other specified parts of digestive tract; Z95.820 Peripheral vascular angioplasty status with implants and grafts; Y93.89 Activity, other specified; Y92.89 Other specified places as the place of occurrence of the external cause; Z68.21 Body mass index [BMI] 21.0-21.9, adult; Y99.8 Other external cause status; Z93.3 Colostomy status; Z93.1 Gastrostomy status; Z79.02 Long term (current) use of antithrombotics/antiplatelets; Z79.82 Long term (current) use of aspirin; Z79.899 Other long term (current) drug therapy; Z91.041 Radiographic dye allergy status
CPT/HCPCS: 10084

== ENCOUNTER → 2018-03-03 | Outpatient (CLI) | payer OTHER ==
[~2018-03-03] MED LIST changes: +CEFUROXIME250 MG PO; +CIPRO500 MG PO; +ENOXAPARIN40 MG/0.1 SUBQ; +FIRVANQ50 MG/1 ML PER TUBE; +JEVITY 1.5 CAL237 ML PER TUBE; +K-DUR 20 MEQ T20 MEQ PO; +ROXICODONE30 M1 PER TUBE; +SEROQUEL 25 MG25 M1 PER TUBE; +XANAX1 MG PER TUBE
== END ==
LOC: HYPER
DX: L89.153 Pressure ulcer of sacral region, stage 3 (principal); A04.72 Enterocolitis due to Clostridium difficile, not specified as recurrent; E78.49 Other hyperlipidemia; G14 Postpolio syndrome; I12.9 Hypertensive chronic kidney disease with stage 1 through stage 4 chronic kidney disease, or unspecified chronic kidney disease; N18.9 Chronic kidney disease, unspecified; I73.9 Peripheral vascular disease, unspecified; I82.4Z9 Acute embolism and thrombosis of unspecified deep veins of unspecified distal lower extremity; N30.00 Acute cystitis without hematuria; M10.9 Gout, unspecified; K21.9 Gastro-esophageal reflux disease without esophagitis; K94.03 Colostomy malfunction; R41.82 Altered mental status, unspecified; R21 Rash and other nonspecific skin eruption; F41.9 Anxiety disorder, unspecified; Z87.891 Personal history of nicotine dependence; Z95.820 Peripheral vascular angioplasty status with implants and grafts

== ENCOUNTER 2018-03-24 14:19 | Emergency (ER) | payer OTHER ==
[~2018-03-24] VITALS: Ht 162.6 cm; Wt 63.5 kg
[2018-03-24 15:58] LABS: CREATININE 0.7 mg/dL (0.7-1.3); POTASSIUM 3.6 mmol/L (3.5-5.1)
[2018-03-24 15:59] LABS: ABSOLUTE NEUTROPHILS 3.2 thou/uL (1.4-8.2); BASOPHILS 0.7 % (0.0-2.0); EOSINOPHILS 5.4 % (0.0-3.0); HEMATOCRIT 29.8 % (42.0-52.0); HEMOGLOBIN 9.2 gm/dL (14.0-18.0); LYMPHOCYTES 17.2 % (24.0-44.0); MCH 22.9 pg (26.0-34.0); MCHC 30.8 g/dL (28.0-37.0); MCV 74.3 fL (80.0-100.0); MONOCYTES 8.5 % (1.0-8.0); PLATELET COUNT 335 thou/uL (150-400); POLYS 68.2 % (36.0-66.0); RBC 4.02 mil/uL (4.50-6.00); RDW 18.9 % (10.5-14.5); WBC 4.7 thou/uL (4.0-11.0)
[2018-03-24 16:03] LABS: URINE CLARITY CLEAR; URINE COLOR YELLOW
[2018-03-24 16:04] LABS: URINE BILIRUBIN NEGATIVE (Negative); URINE BLOOD TRACE (Negative); URINE GLUCOSE-RANDOM* NEGATIVE (Negative); URINE KETONES NEGATIVE (Negative); URINE LEUKOCYTES-REFLEX 3+ (Negative); URINE NITRITE-REFLEX POSITIVE (Negative); URINE PROTEIN (DIPSTICK) TRACE (Negative); URINE UROBILINOGEN 0.2 E.U./dl (0.2-1.0)
[2018-03-24 16:16] LABS: CASTS None Seen /LPF (None Seen); CRYSTALS None Seen /LPF (None Seen); SQUAMOUS None Seen /LPF (0-3); URINE RBC 0-2 Rare /HPF (0-2); URINE WBC-REFLEX 6-15 Few /HPF (0-5)
[2018-03-24 17:49] LABS: ANISOCYTOSIS 1+; HYPOCHROMASIA 1+; MICROCYTES FEW
[2018-03-24] MEDS ORDERED: VANCOCIN 125 M125 M1 PO (17:52)
[2018-03-24 21:17] VITALS: BP 165/69
== END 2018-03-24 21:18 | disposition short-term general hospital (02) ==
LOC: ER 14:19
PROVIDERS: Emergency Medicine
DX: A04.72 Enterocolitis due to Clostridium difficile, not specified as recurrent (principal); N39.0 Urinary tract infection, site not specified; F03.90 Unspecified dementia, unspecified severity, without behavioral disturbance, psychotic disturbance, mood disturbance, and anxiety; Z91.041 Radiographic dye allergy status
CPT/HCPCS: 27000